=== PATIENT | male | born 1950 | race Caucasian/White ===

== ENCOUNTER 2018-04-15 21:28 | Emergency (ER) | payer MEDICARE, MEDICAID ==
[~2018-04-15] VITALS: Ht 172.7 cm; Wt 78.5 kg
[~2018-04-15 21:28] MED LIST: BUPR300T53 PO; CLOM25CA10 PO; CYCL-1 PO; CYCL-35 PO; DIPH50CA4 PO; FLO0.4C PO; LACT10SO PO; LISI-222 PO; METF500T PO; PERPHENAZINE PO; PIOG15TA8 PO
[2018-04-15 21:51] LABS: BASOPHILS # (AUTO) 0.1 X10'3 (0-0.2); BASOPHILS % (AUTO) 0.9 % (0-1); EOSINOPHILS # (AUTO) 0.3 X10'3 (0-0.9); HEMATOCRIT 42.4 % (42.0-52.0); HEMOGLOBIN 14.5 g/dl (14.0-17.9); LYMPHOCYTES # (AUTO) 3.1 X10'3 (1.1-4.8); LYMPHOCYTES % (AUTO) 28.9 % (21-51); MEAN CORPUSCULAR HGB CONC 34.1 % (33.0-36.5); MEAN CORPUSCULAR VOLUME 88.1 FL (78-98); MEAN PLATELET VOLUME 8.1 FL (7.4-10.4); MONOCYTES # (AUTO) 0.5 X10'3 (0-0.9); MONOCYTES % (AUTO) 4.9 % (2-12); NEUTROPHILS # (AUTO) 6.6 X10'3 (1.8-7.7); NEUTROPHILS % (AUTO) 62.3 % (42-75); PLATELET COUNT 228 X10'3 (140-440); RED BLOOD COUNT 4.81 X10'6 (4.70-6.10); RED CELL DISTRIBUTION WIDTH 13.3 % (11.5-14.5); WHITE BLOOD COUNT 10.7 X10'3 (4.5-11.0)
[2018-04-15 21:59] LABS: PARTIAL THROMBOPLASTIN TIME 25 SECONDS (22-32)
[2018-04-15 22:08] LABS: ALANINE AMINOTRANSFERASE 22 U/L (12-78); ALBUMIN/GLOBULIN RATIO 1.3 (1.1-1.5); ALKALINE PHOSPHATASE 73 IU/L (46-116); ANION GAP 9 (8-16); ASPARTATE AMINO TRANSFERASE 11 U/L (10-37); BILIRUBIN,TOTAL 0.7 MG/DL (0.1-1.0); BLOOD UREA NITROGEN 30 MG/DL (7-18); BUN/CREATININE RATIO 10.1 (5.4-32.0); CALCIUM 9.4 MG/DL (8.5-10.1); CHLORIDE 104 MMOL/L (99-107); CREATININE 2.98 MG/DL (0.60-1.10); GLUCOSE 146 MG/DL (70-104); POTASSIUM 4.5 MMOL/L (3.5-5.1); SODIUM 141 MMOL/L (135-145); TOTAL PROTEIN 7.2 G/DL (6.4-8.2); eGFR 21 ML/MIN
[2018-04-16] MEDS ORDERED: FAMO-128 PO (00:40)
[2018-04-16 00:57] VITALS: BP 153/78
== END 2018-04-16 00:58 | disposition home or self-care (01) ==
LOC: ER 21:28
DX: K21.9 Gastro-esophageal reflux disease without esophagitis (principal); R06.81 Apnea, not elsewhere classified; I10 Essential (primary) hypertension; E11.9 Type 2 diabetes mellitus without complications; Z88.0 Allergy status to penicillin
CPT/HCPCS: 36415; 71045; 80053; 84484; 85025; 85610; 85730; 99285

== ENCOUNTER 2018-04-25 04:44 | Emergency (ER) | payer MEDICARE, MEDICAID ==
[~2018-04-25] VITALS: Ht 172.7 cm; Wt 91.5 kg
[~2018-04-25 04:44] MED LIST changes: +FAMO-128 PO
[2018-04-25 05:07] LABS: BASOPHILS # (AUTO) 0.1 X10'3 (0-0.2); BASOPHILS % (AUTO) 0.8 % (0-1); EOSINOPHILS # (AUTO) 0.3 X10'3 (0-0.9); EOSINOPHILS % (AUTO) 2.8 % (0-6); HEMATOCRIT 42.1 % (42.0-52.0); HEMOGLOBIN 14.4 g/dl (14.0-17.9); LYMPHOCYTES # (AUTO) 2.9 X10'3 (1.1-4.8); LYMPHOCYTES % (AUTO) 29.3 % (21-51); MEAN CORPUSCULAR HEMOGLOBIN 30.2 PG (27.0-31.0); MEAN CORPUSCULAR HGB CONC 34.3 % (33.0-36.5); MEAN CORPUSCULAR VOLUME 88.2 FL (78-98); MEAN PLATELET VOLUME 8.4 FL (7.4-10.4); MONOCYTES # (AUTO) 0.6 X10'3 (0-0.9); MONOCYTES % (AUTO) 6.4 % (2-12); NEUTROPHILS # (AUTO) 5.9 X10'3 (1.8-7.7); NEUTROPHILS % (AUTO) 60.7 % (42-75); PLATELET COUNT 222 X10'3 (140-440); RED BLOOD COUNT 4.77 X10'6 (4.70-6.10); RED CELL DISTRIBUTION WIDTH 13.2 % (11.5-14.5); WHITE BLOOD COUNT 9.7 X10'3 (4.5-11.0)
[2018-04-25 05:21] LABS: INR 0.9 INR; PARTIAL THROMBOPLASTIN TIME 25 SECONDS (22-32); PROTHROMBIN TIME 9.8 SECONDS (9.0-12.0)
[2018-04-25 05:24] LABS: ALANINE AMINOTRANSFERASE 18 U/L (12-78); ALBUMIN 3.9 G/DL (3.4-5.0); ALBUMIN/GLOBULIN RATIO 1.2 (1.1-1.5); ALKALINE PHOSPHATASE 84 IU/L (46-116); ANION GAP 9 (8-16); ASPARTATE AMINO TRANSFERASE 9 U/L (10-37); BILIRUBIN,TOTAL 0.5 MG/DL (0.1-1.0); BLOOD UREA NITROGEN 28 MG/DL (7-18); BUN/CREATININE RATIO 9.5 (5.4-32.0); CALCIUM 8.7 MG/DL (8.5-10.1); CHLORIDE 103 MMOL/L (99-107); CREATININE 2.96 MG/DL (0.60-1.10); GLUCOSE 248 MG/DL (70-104); SODIUM 139 MMOL/L (135-145); TOTAL CARBON DIOXIDE 27.2 MMOL/L (24-32); TOTAL PROTEIN 7.2 G/DL (6.4-8.2); eGFR 21 ML/MIN
[2018-04-25] MEDS ORDERED: LORazepam 1 MG tablet PO ONE (06:00)
[2018-04-25 06:10] VITALS: BP 133/96
== END 2018-04-25 06:12 | disposition home or self-care (01) ==
LOC: ER 04:45
DX: R06.00 Dyspnea, unspecified (principal); K21.9 Gastro-esophageal reflux disease without esophagitis; E11.22 Type 2 diabetes mellitus with diabetic chronic kidney disease; I12.9 Hypertensive chronic kidney disease with stage 1 through stage 4 chronic kidney disease, or unspecified chronic kidney disease; N18.9 Chronic kidney disease, unspecified; Z79.84 Long term (current) use of oral hypoglycemic drugs; Z88.0 Allergy status to penicillin; Z98.890 Other specified postprocedural states
CPT/HCPCS: 36415; 71045; 80053; 83880; 84443; 84484; 85025; 85610; 85730; 93005; 99285

== ENCOUNTER 2018-08-19 14:26 | Inpatient (IN) | payer MEDICARE, MEDICAID ==
[~2018-08-19] VITALS: Ht 172.7 cm; Wt 84.7 kg
[~2018-08-19 14:26] MED LIST changes: +etomidate 2mg/ml inj. ONE; +rocuronium 10mg/ml inj IV ONE
[2018-08-19 15:21] LABS: BASOPHILS # (AUTO) 0.1 X10'3 (0-0.2); BASOPHILS % (AUTO) 1.1 % (0-1); EOSINOPHILS # (AUTO) 0.3 X10'3 (0-0.9); EOSINOPHILS % (AUTO) 3.1 % (0-6); HEMATOCRIT 36.6 % (42.0-52.0); HEMOGLOBIN 12.5 g/dl (14.0-17.9); LYMPHOCYTES % (AUTO) 21.1 % (21-51); MEAN CORPUSCULAR HEMOGLOBIN 29.6 PG (27.0-31.0); MEAN CORPUSCULAR HGB CONC 34.1 % (33.0-36.5); MEAN CORPUSCULAR VOLUME 86.8 FL (78-98); MEAN PLATELET VOLUME 8.5 FL (7.4-10.4); MONOCYTES # (AUTO) 0.5 X10'3 (0-0.9); MONOCYTES % (AUTO) 5.2 % (2-12); NEUTROPHILS # (AUTO) 6.6 X10'3 (1.8-7.7); NEUTROPHILS % (AUTO) 69.5 % (42-75); PLATELET COUNT 243 X10'3 (140-440); RED BLOOD COUNT 4.21 X10'6 (4.70-6.10); RED CELL DISTRIBUTION WIDTH 12.8 % (11.5-14.5); WHITE BLOOD COUNT 9.4 X10'3 (4.5-11.0)
[2018-08-19 15:32] LABS: PARTIAL THROMBOPLASTIN TIME 29 SECONDS (22-32); PROTHROMBIN TIME 10.1 SECONDS (9.0-12.0)
[2018-08-19 15:39] LABS: ALANINE AMINOTRANSFERASE 25 U/L (12-78); ALBUMIN 3.7 G/DL (3.4-5.0); ALKALINE PHOSPHATASE 88 IU/L (46-116); ANION GAP 12 (8-16); BLOOD UREA NITROGEN 43 MG/DL (7-18); BUN/CREATININE RATIO 7.7 (5.4-32.0); CALCIUM 9.2 MG/DL (8.5-10.1); CHLORIDE 108 MMOL/L (99-107); CREATININE 5.59 MG/DL (0.60-1.10); GLUCOSE 114 MG/DL (70-104); SODIUM 144 MMOL/L (135-145); TOTAL CARBON DIOXIDE 24.2 MMOL/L (24-32); TOTAL PROTEIN 7.3 G/DL (6.4-8.2); eGFR 10 ML/MIN
[2018-08-19 15:42] LABS: ETHANOL < 0.010 GM/DL (0.0-0.010); TROPONIN I < 0.04 NG/ML (0.0-0.05)
[2018-08-19 15:45] LABS: ASPARTATE AMINO TRANSFERASE 22 U/L (10-37); POTASSIUM 4.9 MMOL/L (3.5-5.1)
[2018-08-19] MEDS ORDERED: normal saline 1000ml 1,000 ML IV ONE (15:45)
[2018-08-19] MEDS ORDERED: HYDROcodone/acetaminophen 5mg/325mg tablet PO PRN (16:20)
[2018-08-19] MEDS ORDERED: ondansetron/PF 4mg/2ml inj IV PRN (16:20)
[2018-08-19] MEDS ORDERED: acetaminophen 325mg tablet PO PRN ×2 (16:20)
[2018-08-19 18:02] LABS: CLARITY,URINE SLIGHTLY CLOUDY (Clear); COLOR,URINE YELLOW (Yellow); GLUCOSE, URINE NEGATIVE (Neg); KETONES,URINE NEGATIVE (Neg); LEUKOCYTE ESTERASE ,URINE NEGATIVE (Neg); NITRITES, URINE NEGATIVE (Neg); OCCULT BLOOD,URINE TRACE-INTACT (Neg); PROTEIN,URINE TRACE mg/dl (Neg); UROBILINOGEN,URINE 0.2 E.U/dL (0.2-1.0)
[2018-08-19 18:08] LABS: UA COLLECTION TYPE FOLEY CATH
[2018-08-19 18:13] LABS: URINE AMPHETAMINE SCREEN NEGATIVE (Neg); URINE BARBITUATE SCREEN NEGATIVE (Neg); URINE BENZODIAZEPINES SCREEN NEGATIVE (Neg); URINE CANNABINOID SCREEN NEGATIVE (Neg); URINE COCAINE SCREEN NEGATIVE (Neg); URINE METHADONE SCREEN NEGATIVE (Neg); URINE OPIATE SCREEN NEGATIVE (Neg); URINE PHENCYCLIDINE SCREEN NEGATIVE (Neg)
[2018-08-19 18:47] LABS: RENAL CELLS, URINE MANY /HPF
[2018-08-19 18:48] LABS: BACTERIA,URINE FEW /HPF (Neg); MUCUS STRANDS NONE SEEN /LPF (Neg); RBC,URINE NONE SEEN /HPF (0-2); SQUAMOUS EPITHELIAL CELL,UR NONE SEEN /LPF (FEW); WBC,URINE 0-4 /HPF (0-4)
[2018-08-19] MEDS ORDERED: PERP8TAB6 PO (18:49)
[2018-08-19] MEDS ORDERED: ASPI81TA52 PO (18:49)
[2018-08-19] MEDS ORDERED: GLIP10TA11 PO (18:49)
[2018-08-19] MEDS ORDERED: CHOL500049 PO (18:49)
[2018-08-19] MEDS ORDERED: LINA5TAB4 PO (18:49)
[2018-08-19] MEDS ORDERED: HYDR-3965 PO (18:49)
[2018-08-19] MEDS ORDERED: LABE100T5 PO (18:49)
[2018-08-19] MEDS ORDERED: AMIT100T2 PO (18:49)
[2018-08-19 18:59] VITALS: BP 164/99
[2018-08-19] MEDS: normal saline 1000ml 1,000 ML IV SCH (19:05)
[2018-08-19 20:00] VITALS: BP_SYST 118; BP_SYST 131; BP_SYST 172; BP_DIAS 102; BP_DIAS 80; BP_DIAS 89
[2018-08-19] MEDS: heparin, porcine 5000 units/ml vial SQ SCH (20:13)
[2018-08-19 22:00] VITALS: BP 131/89
[2018-08-20] VITALS (9 sets, daily range): BP systolic 86–156; BP diastolic 37–106
[2018-08-20] MEDS: normal saline 1000ml 1,000 ML IV SCH ×3 (02:20→15:59)
[2018-08-20 05:42] LABS: BASOPHILS % (AUTO) 0.3 % (0-1); EOSINOPHILS # (AUTO) 0.4 X10'3 (0-0.9); EOSINOPHILS % (AUTO) 2.9 % (0-6); HEMATOCRIT 35.4 % (42.0-52.0); LYMPHOCYTES # (AUTO) 2.8 X10'3 (1.1-4.8); LYMPHOCYTES % (AUTO) 22.6 % (21-51); MEAN CORPUSCULAR HEMOGLOBIN 29.7 PG (27.0-31.0); MEAN CORPUSCULAR HGB CONC 33.9 % (33.0-36.5); MEAN CORPUSCULAR VOLUME 87.7 FL (78-98); MEAN PLATELET VOLUME 8.3 FL (7.4-10.4); MONOCYTES # (AUTO) 0.7 X10'3 (0-0.9); MONOCYTES % (AUTO) 5.9 % (2-12); NEUTROPHILS # (AUTO) 8.5 X10'3 (1.8-7.7); NEUTROPHILS % (AUTO) 68.3 % (42-75); PLATELET COUNT 229 X10'3 (140-440); RED BLOOD COUNT 4.03 X10'6 (4.70-6.10); RED CELL DISTRIBUTION WIDTH 12.8 % (11.5-14.5); WHITE BLOOD COUNT 12.4 X10'3 (4.5-11.0)
[2018-08-20 06:20] LABS: ALANINE AMINOTRANSFERASE 25 U/L (12-78); ALBUMIN 3.5 G/DL (3.4-5.0); ALBUMIN/GLOBULIN RATIO 1.1 (1.1-1.5); ANION GAP 13 (8-16); ASPARTATE AMINO TRANSFERASE 23 U/L (10-37); BILIRUBIN,TOTAL 0.9 MG/DL (0.1-1.0); BLOOD UREA NITROGEN 41 MG/DL (7-18); BUN/CREATININE RATIO 7.8 (5.4-32.0); CALCIUM 8.6 MG/DL (8.5-10.1); CHLORIDE 110 MMOL/L (99-107); CREATININE 5.23 MG/DL (0.60-1.10); GLUCOSE 74 MG/DL (70-104); MAGNESIUM 1.9 MG/DL (1.5-2.4); PHOSPHORUS 3.4 MG/DL (2.3-4.5); POTASSIUM 4.4 MMOL/L (3.5-5.1); SODIUM 147 MMOL/L (135-145); TOTAL CARBON DIOXIDE 24.1 MMOL/L (24-32); TOTAL PROTEIN 6.7 G/DL (6.4-8.2); eGFR 11 ML/MIN
[2018-08-20 06:21] LABS: ALKALINE PHOSPHATASE 80 IU/L (46-116)
[2018-08-20] MEDS: heparin, porcine 5000 units/ml vial SQ SCH ×2 (07:15→19:49)
[2018-08-20 08:54] LABS: OSMOLALITY 310 MOSM/K (280-300)
[2018-08-20] MEDS: metoprolol tartrate 25mg tablet PO SCH ×2 (11:53→19:49)
[2018-08-20] MEDS: cloNIDine 0.1 mg tablet PO PRN (13:00)
[2018-08-20] MEDS ORDERED: labetalol 20mg/4ml (5mg/ml) syringe IV ONE (15:35)
[2018-08-20] MEDS: buPROPion SR 150mg tablet PO SCH (20:23)
[2018-08-20] MEDS ORDERED: buproprion 150mg XL (24-hour) tablet PO SCH (20:30)
[2018-08-20] MEDS ORDERED: diltiazem 5mg/ml 5ml inj. IV ONE ×2 (21:25→22:00)
[2018-08-21] VITALS (27 sets, daily range): BP systolic 98–216; BP diastolic 60–115
[2018-08-21] MEDS: diltiazem-NS 100mg/100ml 100 ML IV SCH ×2 (00:30→18:42)
[2018-08-21 03:12] LABS: ALANINE AMINOTRANSFERASE 34 U/L (12-78); ALBUMIN 3.6 G/DL (3.4-5.0); ALKALINE PHOSPHATASE 93 IU/L (46-116); ANION GAP 18 (8-16); ASPARTATE AMINO TRANSFERASE 51 U/L (10-37); BASOPHILS # (AUTO) 0.1 X10'3 (0-0.2); BASOPHILS % (AUTO) 0.6 % (0-1); BILIRUBIN,TOTAL 1.3 MG/DL (0.1-1.0); BLOOD UREA NITROGEN 48 MG/DL (7-18); BUN/CREATININE RATIO 9.3 (5.4-32.0); CALCIUM 9.4 MG/DL (8.5-10.1); CHLORIDE 108 MMOL/L (99-107); CREATININE 5.17 MG/DL (0.60-1.10); EOSINOPHILS # (AUTO) 0.3 X10'3 (0-0.9); EOSINOPHILS % (AUTO) 1.7 % (0-6); GLUCOSE 120 MG/DL (70-104); HEMATOCRIT 38.1 % (42.0-52.0); HEMOGLOBIN 12.8 g/dl (14.0-17.9); LYMPHOCYTES % (AUTO) 11.5 % (21-51); MEAN CORPUSCULAR HEMOGLOBIN 29.5 PG (27.0-31.0); MEAN CORPUSCULAR HGB CONC 33.6 % (33.0-36.5); MEAN CORPUSCULAR VOLUME 87.7 FL (78-98); MEAN PLATELET VOLUME 9.2 FL (7.4-10.4); MONOCYTES # (AUTO) 0.4 X10'3 (0-0.9); MONOCYTES % (AUTO) 2.2 % (2-12); NEUTROPHILS # (AUTO) 14.4 X10'3 (1.8-7.7); PLATELET COUNT 266 X10'3 (140-440); POTASSIUM 4.6 MMOL/L (3.5-5.1); RED BLOOD COUNT 4.35 X10'6 (4.70-6.10); RED CELL DISTRIBUTION WIDTH 12.8 % (11.5-14.5); SODIUM 145 MMOL/L (135-145); TOTAL CARBON DIOXIDE 19.5 MMOL/L (24-32); TOTAL PROTEIN 7.1 G/DL (6.4-8.2); WHITE BLOOD COUNT 17.1 X10'3 (4.5-11.0); eGFR 11 ML/MIN
[2018-08-21 03:15] LABS: MAGNESIUM 1.9 MG/DL (1.5-2.4); PHOSPHORUS 4.4 MG/DL (2.3-4.5); TROPONIN I < 0.04 NG/ML (0.0-0.05)
[2018-08-21] MEDS ORDERED: LORazepam 2 mg/ml vial IV ONE ×2 (04:05→10:50)
[2018-08-21] MEDS ORDERED: normal saline 1000ml 1,000 ML IVB ONE (05:10)
[2018-08-21] MEDS: piperacillin/tazo 3.375gm/50ml 50 ML IV SCH ×4 (05:50→20:47)
[2018-08-21] MEDS ORDERED: vancomycin inj 1,250 MG in normal saline 250ml IV soln 250 ML IV PRN (06:00)
[2018-08-21 06:58] LABS: TROPONIN I 0.05 NG/ML (0.0-0.05)
[2018-08-21 07:17] LABS: CLARITY,URINE CLEAR (Clear); COLOR,URINE YELLOW (Yellow); GLUCOSE, URINE 100 mg/dl (Neg); KETONES,URINE 15 mg/dl (Neg); LEUKOCYTE ESTERASE ,URINE NEGATIVE (Neg); NITRITES, URINE NEGATIVE (Neg); OCCULT BLOOD,URINE LARGE (Neg); PH,URINE 5.5 (4.8-8.0); PROTEIN,URINE TRACE mg/dl (Neg); UROBILINOGEN,URINE 0.2 E.U/dL (0.2-1.0)
[2018-08-21] MEDS: heparin, porcine 5000 units/ml vial SQ SCH (07:19)
[2018-08-21] MEDS: metoprolol tartrate 25mg tablet PO SCH ×2 (07:19→20:47)
[2018-08-21] MEDS: buPROPion SR 150mg tablet PO SCH (07:19)
[2018-08-21 07:21] LABS: UA COLLECTION TYPE FOLEY CATH
[2018-08-21 07:24] LABS: BACTERIA,URINE FEW /HPF (Neg); RBC,URINE TNTC /HPF (0-2); SQUAMOUS EPITHELIAL CELL,UR MODERATE /LPF (FEW); WBC,URINE 0-4 /HPF (0-4)
[2018-08-21] MEDS ORDERED: CHOLECALCIFEROL PO SCH (10:30)
[2018-08-21] MEDS ORDERED: HYDROcodone/acetaminophen 5mg/325mg tablet PO PRN (10:30)
[2018-08-21] MEDS: tamsulosin 0.4mg capsule PO SCH (10:30)
[2018-08-21] MEDS: diltiazem CD 180mg cap (once-daily) PO SCH (10:35)
[2018-08-21 11:21] LABS: ABG BASE EXCESS -13.8 mmol/L (-2.0-3.0); ABG HCO3 12.7 mmol/L (22.0-26.0); ABG OXYGEN SATURATION 96.1 % (95-98); ABG PCO2 (T) 32.1 mmHg (35.0-48.0); ABG PH (T) 7.216 (7.350-7.450); ABG PO2 (T) 98.4 mmHg (83-108); FCOHb 0.3 % (0.5-1.5); FLOW 6 L/min; FMetHb 0.1 % (0.3-1.12); FO2Hb 95.7 % (94-100); TOTAL HEMOGLOBIN 12.4 G/dl (14.0-18.0)
[2018-08-21] MEDS ORDERED: dantrolene 20mg inj IV ONE ×2 (11:30→12:50)
[2018-08-21] MEDS ORDERED: sodium bicarbonate (8.4%) inj. 150 MEQ in sodium chloride 0.45% 1,000 ML IV SCH (12:15)
[2018-08-21 13:09] LABS: PROTHROMBIN TIME 10.7 SECONDS (9.0-12.0)
[2018-08-21] MEDS ORDERED: MIDAZolam 5mg/ml 2ml vial ONE (13:36)
[2018-08-21] MEDS ORDERED: ipratropium/albuterol 3ml nebule NEB PRN (14:20)
[2018-08-21] MEDS ORDERED: midazolam 2 mg/2 ml injection IV PRN (14:20)
[2018-08-21] MEDS ORDERED: MESSAGE TO PHARMACY PO ONE (14:40)
[2018-08-21] MEDS ORDERED: dextrose 50%-water 50ml dispensing syringe IV PRN ×2 (14:40)
[2018-08-21] MEDS ORDERED: dextrose ORAL solution 15 GM/59 ML bottle PO PRN ×2 (14:40)
[2018-08-21] MEDS ORDERED: glucagon, human recombinant 1mg kit SUBCUT PRN (14:40)
[2018-08-21] MEDS: FENTANYL-0.9 % NACL/PF 100 ML IV PRN (14:52)
[2018-08-21] MEDS: sodium bicarbonate (8.4%) inj. 150 MEQ in dextrose 5%-water 1,000 ML IV SCH (14:56)
[2018-08-21] MEDS: midazolam 100mg in NS 100ml 100 ML IV PRN (15:09)
[2018-08-21] MEDS ORDERED: rocuronium 10mg/ml inj IV ONE (15:15)
[2018-08-21] MEDS ORDERED: etomidate 2mg/ml inj. IV ONE (15:15)
[2018-08-21] MEDS: vitamin D (cholecalciferol) 1,000 unit tablet PO SCH (15:35)
[2018-08-21] MEDS: carbidopa/levodopa 10/100mg tab PO SCH (16:11)
[2018-08-21 17:30] LABS: ABG BASE EXCESS -13.1 mmol/L (-2.0-3.0); ABG HCO3 12.9 mmol/L (22.0-26.0); ABG OXYGEN SATURATION 96.3 % (95-98); ABG PCO2 (T) 30.2 mmHg (35.0-48.0); ABG PH (T) 7.247 (7.350-7.450); ABG PO2 (T) 97.9 mmHg (83-108); ALLEN'S TEST Positive; FCOHb 0.3 % (0.5-1.5); FMetHb 0.2 % (0.3-1.12); FO2Hb 95.8 % (94-100); RESPIRATORY RATE 14 b/min; RESPIRATORY RATE (OBSERVED) 16 b/min; TIDAL VOLUME 400 mL; TOTAL HEMOGLOBIN 11.1 G/dl (14.0-18.0)
[2018-08-21] MEDS: labetalol 100mg tablet PO SCH (20:00)
[2018-08-21] MEDS ORDERED: glipizide 5mg tablet PO SCH (20:00)
[2018-08-21] MEDS: lactobacillus rhamnosus 10,000 MMU CELLS/CAPSULE PO SCH (20:47)
[2018-08-21] MEDS: amitryptiline 50mg tablet PO SCH (20:48)
[2018-08-21] MEDS ORDERED: warfarin 5mg tablet PO ONE (21:00)
[2018-08-21] MEDS ORDERED: amitryptiline 50mg tablet PO SCH (21:00)
[2018-08-21] MEDS: insulin glargine (Lantus) pen - multi-dose SQ SCH (21:06)
[2018-08-21] MEDS: insulin regular, human vial - multi-dose SQ SCH (21:07)
[2018-08-22] VITALS (23 sets, daily range): BP systolic 105–136; BP diastolic 62–84
[2018-08-22] MEDS: carbidopa/levodopa 10/100mg tab PO SCH ×3 (00:28→15:33)
[2018-08-22] MEDS: piperacillin/tazo 3.375gm/50ml 50 ML IV SCH ×3 (02:07→14:11)
[2018-08-22] MEDS: sodium bicarbonate (8.4%) inj. 150 MEQ in dextrose 5%-water 1,000 ML IV SCH ×2 (02:07→14:58)
[2018-08-22] MEDS: insulin regular, human vial - multi-dose SQ SCH ×3 (02:43→14:40)
[2018-08-22 02:56] LABS: ABG BASE EXCESS -3.5 mmol/L (-2.0-3.0); ABG HCO3 20.8 mmol/L (22.0-26.0); ABG OXYGEN SATURATION 94.4 % (95-98); ABG PCO2 (T) 35.6 mmHg (35.0-48.0); ABG PH (T) 7.388 (7.350-7.450); ABG PO2 (T) 73.1 mmHg (83-108); ALLEN'S TEST Positive; FCOHb 0.3 % (0.5-1.5); FO2Hb 94.1 % (94-100); MINUTE VOLUME 7 L/min; PATIENT TEMPERATURE 37.5; PEEP 5 cm H2O; RESPIRATORY RATE 12 b/min; RESPIRATORY RATE (OBSERVED) 12 b/min; TIDAL VOLUME 450 mL; TOTAL HEMOGLOBIN 10.6 G/dl (14.0-18.0)
[2018-08-22] MEDS: midazolam 100mg in NS 100ml 100 ML IV PRN ×2 (03:01→21:52)
[2018-08-22 03:04] LABS: BASOPHILS % (AUTO) 0.1 % (0-1); EOSINOPHILS # (AUTO) 0.2 X10'3 (0-0.9); EOSINOPHILS % (AUTO) 1.2 % (0-6); HEMATOCRIT 29.2 % (42.0-52.0); HEMOGLOBIN 9.7 g/dl (14.0-17.9); LYMPHOCYTES # (AUTO) 1.4 X10'3 (1.1-4.8); LYMPHOCYTES % (AUTO) 9.5 % (21-51); MEAN CORPUSCULAR HEMOGLOBIN 29.3 PG (27.0-31.0); MEAN CORPUSCULAR HGB CONC 33.3 % (33.0-36.5); MEAN CORPUSCULAR VOLUME 87.9 FL (78-98); MEAN PLATELET VOLUME 9.1 FL (7.4-10.4); MONOCYTES # (AUTO) 0.9 X10'3 (0-0.9); MONOCYTES % (AUTO) 6.4 % (2-12); NEUTROPHILS # (AUTO) 12.2 X10'3 (1.8-7.7); NEUTROPHILS % (AUTO) 82.8 % (42-75); PLATELET COUNT 203 X10'3 (140-440); RED BLOOD COUNT 3.33 X10'6 (4.70-6.10); RED CELL DISTRIBUTION WIDTH 12.7 % (11.5-14.5); WHITE BLOOD COUNT 14.7 X10'3 (4.5-11.0)
[2018-08-22 03:11] LABS: PROTHROMBIN TIME 10.6 SECONDS (9.0-12.0)
[2018-08-22 03:21] LABS: ALANINE AMINOTRANSFERASE 26 U/L (12-78); ALBUMIN/GLOBULIN RATIO 1.1 (1.1-1.5); ALKALINE PHOSPHATASE 66 IU/L (46-116); ANION GAP 15 (8-16); ASPARTATE AMINO TRANSFERASE 47 U/L (10-37); BILIRUBIN,TOTAL 1.5 MG/DL (0.1-1.0); BLOOD UREA NITROGEN 75 MG/DL (7-18); BUN/CREATININE RATIO 13.7 (5.4-32.0); CALCIUM 8.5 MG/DL (8.5-10.1); CHLORIDE 105 MMOL/L (99-107); CREATININE 5.49 MG/DL (0.60-1.10); GLUCOSE 173 MG/DL (70-104); MAGNESIUM 2.3 MG/DL (1.5-2.4); PHOSPHORUS 5.7 MG/DL (2.3-4.5); SODIUM 144 MMOL/L (135-145); TOTAL CARBON DIOXIDE 24.4 MMOL/L (24-32); TOTAL PROTEIN 5.8 G/DL (6.4-8.2); VANCOMYCIN,RANDOM 12.9 UG/ML; eGFR 10 ML/MIN
[2018-08-22] MEDS: FENTANYL-0.9 % NACL/PF 100 ML IV PRN ×2 (04:34→21:52)
[2018-08-22] MEDS: metoprolol tartrate 25mg tablet PO SCH ×2 (07:31→21:27)
[2018-08-22] MEDS: tamsulosin 0.4mg capsule PO SCH (07:31)
[2018-08-22] MEDS: lactobacillus rhamnosus 10,000 MMU CELLS/CAPSULE PO SCH ×2 (07:31→21:27)
[2018-08-22] MEDS: diltiazem CD 180mg cap (once-daily) PO SCH (07:31)
[2018-08-22] MEDS: aspirin 81mg tablet.DR PO SCH (07:31)
[2018-08-22] MEDS: vitamin D (cholecalciferol) 1,000 unit tablet PO SCH (07:31)
[2018-08-22] MEDS: linagliptin 5mg tablet PO SCH (07:35)
[2018-08-22] MEDS: labetalol 100mg tablet PO SCH (08:00)
[2018-08-22] MEDS ORDERED: BUPROPION HCL 300 MG PO SCH (08:00)
[2018-08-22] MEDS ORDERED: vancomycin inj 1,250 MG in normal saline 250ml IV soln 250 ML IV PRN (08:00)
[2018-08-22] MEDS ORDERED: vancomycin inj 1,250 MG in normal saline 250ml IV soln 250 ML IV ONE (08:00)
[2018-08-22] MEDS: thiamine inj. 100 MG, magnesium sulf injection 2 GM, MVI, adult No.4 with vit. K 10 ML ... IV SCH ×4 (08:32)
[2018-08-22] MEDS ORDERED: MIDAZolam 5mg/ml 2ml vial ONE (11:13)
[2018-08-22] MEDS: amitryptiline 50mg tablet PO SCH (21:26)
[2018-08-22] MEDS: mineral oil/petrolatum ophthal oint EACHEYE SCH (21:27)
[2018-08-22] MEDS: heparin, porcine 5000 units/ml vial SQ SCH (21:27)
[2018-08-22] MEDS: insulin glargine (Lantus) pen - multi-dose SQ SCH (21:47)
[2018-08-22] MEDS: piperacillin-tazo 2.25gm/50ml 50 ML IV SCH (21:51)
[2018-08-23] VITALS (23 sets, daily range): BP systolic 104–153; BP diastolic 69–93
[2018-08-23 02:44] LABS: BASOPHILS % (AUTO) 0.3 % (0-1); EOSINOPHILS # (AUTO) 0.3 X10'3 (0-0.9); EOSINOPHILS % (AUTO) 3.3 % (0-6); HEMATOCRIT 28.2 % (42.0-52.0); HEMOGLOBIN 9.4 g/dl (14.0-17.9); LYMPHOCYTES # (AUTO) 2.1 X10'3 (1.1-4.8); MEAN CORPUSCULAR HEMOGLOBIN 29.3 PG (27.0-31.0); MEAN CORPUSCULAR HGB CONC 33.3 % (33.0-36.5); MEAN CORPUSCULAR VOLUME 88.1 FL (78-98); MEAN PLATELET VOLUME 8.8 FL (7.4-10.4); MONOCYTES # (AUTO) 0.6 X10'3 (0-0.9); MONOCYTES % (AUTO) 5.9 % (2-12); NEUTROPHILS # (AUTO) 6.8 X10'3 (1.8-7.7); NEUTROPHILS % (AUTO) 69.5 % (42-75); PLATELET COUNT 159 X10'3 (140-440); RED CELL DISTRIBUTION WIDTH 12.8 % (11.5-14.5); WHITE BLOOD COUNT 9.8 X10'3 (4.5-11.0)
[2018-08-23 02:47] LABS: PROTHROMBIN TIME 10.5 SECONDS (9.0-12.0)
[2018-08-23 02:57] LABS: ALANINE AMINOTRANSFERASE 13 U/L (12-78); ALBUMIN 2.5 G/DL (3.4-5.0); ALBUMIN/GLOBULIN RATIO 0.9 (1.1-1.5); ALKALINE PHOSPHATASE 54 IU/L (46-116); ANION GAP 12 (8-16); ASPARTATE AMINO TRANSFERASE 33 U/L (10-37); BLOOD UREA NITROGEN 63 MG/DL (7-18); BUN/CREATININE RATIO 12.8 (5.4-32.0); CALCIUM 8.3 MG/DL (8.5-10.1); CHLORIDE 104 MMOL/L (99-107); CREATININE 4.92 MG/DL (0.60-1.10); GLUCOSE 118 MG/DL (70-104); MAGNESIUM 1.9 MG/DL (1.5-2.4); PHOSPHORUS 3.3 MG/DL (2.3-4.5); SODIUM 145 MMOL/L (135-145); TOTAL CARBON DIOXIDE 29.1 MMOL/L (24-32); TOTAL PROTEIN 5.3 G/DL (6.4-8.2); VANCOMYCIN,RANDOM 22.7 UG/ML; eGFR 12 ML/MIN
[2018-08-23] MEDS: mineral oil/petrolatum ophthal oint EACHEYE SCH ×4 (02:58→20:38)
[2018-08-23] MEDS: piperacillin-tazo 2.25gm/50ml 50 ML IV SCH ×4 (02:58→20:37)
[2018-08-23] MEDS ORDERED: VANCOMYCIN LEVEL IV SCH (03:00)
[2018-08-23 03:03] LABS: POTASSIUM 2.7 MMOL/L (3.5-5.1)
[2018-08-23] MEDS ORDERED: potassium Cl 40MEQ/250ML bag 250 ML IV ONE ×2 (03:20→09:20)
[2018-08-23 03:50] LABS: ABG BASE EXCESS 2.6 mmol/L (-2.0-3.0); ABG HCO3 24.5 mmol/L (22.0-26.0); ABG OXYGEN SATURATION 94.5 % (95-98); ABG PCO2 (T) 29.5 mmHg (35.0-48.0); ABG PH (T) 7.541 (7.350-7.450); ABG PO2 (T) 70.6 mmHg (83-108); ALLEN'S TEST Positive; FCOHb 0.3 % (0.5-1.5); FMetHb 0.3 % (0.3-1.12); FO2Hb 93.9 % (94-100); MINUTE VOLUME 9 L/min; PATIENT TEMPERATURE 37.6; PEEP 5 cm H2O; RESPIRATORY RATE 16 b/min; RESPIRATORY RATE (OBSERVED) 19 b/min; TIDAL VOLUME 468 mL; TOTAL HEMOGLOBIN 10.2 G/dl (14.0-18.0)
[2018-08-23] MEDS: sodium bicarbonate (8.4%) inj. 150 MEQ in dextrose 5%-water 1,000 ML IV SCH (06:24)
[2018-08-23] MEDS: heparin, porcine 5000 units/ml vial SQ SCH ×2 (07:53→20:38)
[2018-08-23] MEDS: tamsulosin 0.4mg capsule PO SCH (07:53)
[2018-08-23] MEDS: aspirin 81mg tablet.DR PO SCH (07:53)
[2018-08-23] MEDS: thiamine inj. 100 MG, magnesium sulf injection 2 GM, MVI, adult No.4 with vit. K 10 ML ... IV SCH ×4 (07:53)
[2018-08-23] MEDS: linagliptin 5mg tablet PO SCH (07:53)
[2018-08-23] MEDS: diltiazem CD 180mg cap (once-daily) PO SCH (07:54)
[2018-08-23] MEDS: vitamin D (cholecalciferol) 1,000 unit tablet PO SCH (07:54)
[2018-08-23] MEDS: metoprolol tartrate 25mg tablet PO SCH ×2 (07:54→20:37)
[2018-08-23] MEDS: lactobacillus rhamnosus 10,000 MMU CELLS/CAPSULE PO SCH ×2 (07:54→20:37)
[2018-08-23] MEDS: famotidine/PF 10 mg/ml inj IV SCH ×2 (11:59→20:37)
[2018-08-23] MEDS: amitryptiline 50mg tablet PO SCH (20:37)
[2018-08-23] MEDS: insulin glargine (Lantus) pen - multi-dose SQ SCH (21:00)
[2018-08-23] MEDS: FENTANYL-0.9 % NACL/PF 100 ML IV PRN (22:46)
[2018-08-24] VITALS (24 sets, daily range): BP systolic 95–161; BP diastolic 60–99
[2018-08-24] MEDS: mineral oil/petrolatum ophthal oint EACHEYE SCH ×4 (02:09→19:12)
[2018-08-24] MEDS: piperacillin-tazo 2.25gm/50ml 50 ML IV SCH ×4 (02:09→19:50)
[2018-08-24 02:58] LABS: BASOPHILS % (AUTO) 0.2 % (0-1); EOSINOPHILS # (AUTO) 0.4 X10'3 (0-0.9); EOSINOPHILS % (AUTO) 4.4 % (0-6); HEMATOCRIT 29.1 % (42.0-52.0); HEMOGLOBIN 9.6 g/dl (14.0-17.9); LYMPHOCYTES # (AUTO) 1.5 X10'3 (1.1-4.8); LYMPHOCYTES % (AUTO) 17.6 % (21-51); MEAN CORPUSCULAR HGB CONC 32.9 % (33.0-36.5); MONOCYTES # (AUTO) 0.5 X10'3 (0-0.9); MONOCYTES % (AUTO) 6.1 % (2-12); NEUTROPHILS % (AUTO) 71.7 % (42-75); PLATELET COUNT 154 X10'3 (140-440); RED BLOOD COUNT 3.31 X10'6 (4.70-6.10); RED CELL DISTRIBUTION WIDTH 13.3 % (11.5-14.5); WHITE BLOOD COUNT 8.4 X10'3 (4.5-11.0)
[2018-08-24] MEDS: VANCOMYCIN LEVEL IV SCH (03:00)
[2018-08-24 03:02] LABS: ALANINE AMINOTRANSFERASE 37 U/L (12-78); ALBUMIN 2.5 G/DL (3.4-5.0); ALBUMIN/GLOBULIN RATIO 0.8 (1.1-1.5); ALKALINE PHOSPHATASE 57 IU/L (46-116); ANION GAP 9 (8-16); ASPARTATE AMINO TRANSFERASE 37 U/L (10-37); BILIRUBIN,TOTAL 1.2 MG/DL (0.1-1.0); BLOOD UREA NITROGEN 49 MG/DL (7-18); BUN/CREATININE RATIO 11.3 (5.4-32.0); CALCIUM 8.2 MG/DL (8.5-10.1); CHLORIDE 107 MMOL/L (99-107); CREATININE 4.33 MG/DL (0.60-1.10); GLUCOSE 70 MG/DL (70-104); MAGNESIUM 2.2 MG/DL (1.5-2.4); PHOSPHORUS 2.7 MG/DL (2.3-4.5); POTASSIUM 3.6 MMOL/L (3.5-5.1); SODIUM 144 MMOL/L (135-145); TOTAL CARBON DIOXIDE 27.7 MMOL/L (24-32); TOTAL PROTEIN 5.5 G/DL (6.4-8.2); VANCOMYCIN,RANDOM 15.3 UG/ML; eGFR 14 ML/MIN
[2018-08-24 03:05] LABS: ABG HCO3 21.2 mmol/L (22.0-26.0); ABG PCO2 (T) 31.9 mmHg (35.0-48.0); ABG PH (T) 7.443 (7.350-7.450); ABG PO2 (T) 74.9 mmHg (83-108); ALLEN'S TEST Positive; FCOHb 0.3 % (0.5-1.5); FMetHb 0.3 % (0.3-1.12); FO2Hb 93.4 % (94-100); MINUTE VOLUME 7 L/min; PATIENT TEMPERATURE 37.7; PEEP 5 cm H2O; RESPIRATORY RATE (OBSERVED) 21 b/min; TIDAL VOLUME 352 mL; TOTAL HEMOGLOBIN 10.5 G/dl (14.0-18.0)
[2018-08-24] MEDS: Dextrose 10%-water IV solution 1,000 ML IV SCH (03:41)
[2018-08-24 04:16] LABS: PROTHROMBIN TIME 10.2 SECONDS (9.0-12.0)
[2018-08-24] MEDS: linagliptin 5mg tablet PO SCH (08:00)
[2018-08-24] MEDS: famotidine/PF 10 mg/ml inj IV SCH ×2 (08:18→19:49)
[2018-08-24] MEDS: heparin, porcine 5000 units/ml vial SQ SCH ×2 (08:19→19:50)
[2018-08-24] MEDS: vitamin D (cholecalciferol) 1,000 unit tablet PO SCH (08:19)
[2018-08-24] MEDS: tamsulosin 0.4mg capsule PO SCH (08:19)
[2018-08-24] MEDS: metoprolol tartrate 25mg tablet PO SCH ×2 (08:19→19:12)
[2018-08-24] MEDS: diltiazem CD 180mg cap (once-daily) PO SCH (08:19)
[2018-08-24] MEDS: aspirin 81mg tablet.DR PO SCH (08:19)
[2018-08-24] MEDS: lactobacillus rhamnosus 10,000 MMU CELLS/CAPSULE PO SCH ×2 (08:19→19:12)
[2018-08-24] MEDS ORDERED: racepinephrine 11.25mg/0.5ml nebule NEB PRN (09:20)
[2018-08-24] MEDS ORDERED: ipratropium/albuterol 3ml nebule NEB PRN ×2 (09:20→21:30)
[2018-08-24] MEDS: ipratropium/albuterol 3ml nebule NEB SCH ×2 (14:42→20:27)
[2018-08-24] MEDS: LORazepam 2 mg/ml vial IV PRN ×2 (18:34→23:22)
[2018-08-24] MEDS: insulin glargine (Lantus) pen - multi-dose SQ SCH (21:00)
[2018-08-24] MEDS: amitryptiline 50mg tablet PO SCH (21:00)
[2018-08-25] VITALS (24 sets, daily range): BP systolic 145–193; BP diastolic 83–109
[2018-08-25] MEDS: piperacillin-tazo 2.25gm/50ml 50 ML IV SCH ×4 (01:49→19:24)
[2018-08-25] MEDS: morphine 4 MG/ML inj SYRINge IV PRN ×4 (01:49→22:03)
[2018-08-25] MEDS: mineral oil/petrolatum ophthal oint EACHEYE SCH (01:49)
[2018-08-25 02:50] LABS: BASOPHILS % (AUTO) 0.3 % (0-1); EOSINOPHILS # (AUTO) 0.3 X10'3 (0-0.9); EOSINOPHILS % (AUTO) 3.7 % (0-6); HEMATOCRIT 30.8 % (42.0-52.0); HEMOGLOBIN 10.2 g/dl (14.0-17.9); LYMPHOCYTES # (AUTO) 0.8 X10'3 (1.1-4.8); MEAN CORPUSCULAR HEMOGLOBIN 28.9 PG (27.0-31.0); MEAN CORPUSCULAR HGB CONC 32.9 % (33.0-36.5); MEAN CORPUSCULAR VOLUME 87.8 FL (78-98); MEAN PLATELET VOLUME 8.7 FL (7.4-10.4); MONOCYTES # (AUTO) 0.4 X10'3 (0-0.9); PLATELET COUNT 162 X10'3 (140-440); RED BLOOD COUNT 3.51 X10'6 (4.70-6.10); RED CELL DISTRIBUTION WIDTH 12.8 % (11.5-14.5); WHITE BLOOD COUNT 7.5 X10'3 (4.5-11.0)
[2018-08-25] MEDS: VANCOMYCIN LEVEL IV SCH (02:50)
[2018-08-25 03:00] LABS: PROTHROMBIN TIME 10.4 SECONDS (9.0-12.0)
[2018-08-25 03:08] LABS: ALANINE AMINOTRANSFERASE 42 U/L (12-78); ALBUMIN 2.8 G/DL (3.4-5.0); ALBUMIN/GLOBULIN RATIO 0.8 (1.1-1.5); ALKALINE PHOSPHATASE 66 IU/L (46-116); ANION GAP 12 (8-16); ASPARTATE AMINO TRANSFERASE 34 U/L (10-37); BILIRUBIN,TOTAL 1.7 MG/DL (0.1-1.0); BLOOD UREA NITROGEN 42 MG/DL (7-18); BUN/CREATININE RATIO 9.7 (5.4-32.0); CALCIUM 8.6 MG/DL (8.5-10.1); CHLORIDE 106 MMOL/L (99-107); CREATININE 4.32 MG/DL (0.60-1.10); GLUCOSE 115 MG/DL (70-104); MAGNESIUM 1.8 MG/DL (1.5-2.4); PHOSPHORUS 2.8 MG/DL (2.3-4.5); POTASSIUM 3.7 MMOL/L (3.5-5.1); SODIUM 143 MMOL/L (135-145); TOTAL CARBON DIOXIDE 25.1 MMOL/L (24-32); TOTAL PROTEIN 6.2 G/DL (6.4-8.2); VANCOMYCIN,RANDOM 10.9 UG/ML; eGFR 14 ML/MIN
[2018-08-25] MEDS: LORazepam 2 mg/ml vial IV PRN ×4 (03:38→19:42)
[2018-08-25] MEDS: Dextrose 10%-water IV solution 1,000 ML IV SCH (03:40)
[2018-08-25] MEDS ORDERED: vancomycin inj 1,250 MG in normal saline 250ml IV soln 250 ML IV ONE (06:35)
[2018-08-25] MEDS: famotidine/PF 10 mg/ml inj IV SCH ×2 (07:44→19:24)
[2018-08-25] MEDS: heparin, porcine 5000 units/ml vial SQ SCH ×2 (07:44→19:25)
[2018-08-25] MEDS: vitamin D (cholecalciferol) 1,000 unit tablet PO SCH (08:00)
[2018-08-25] MEDS: tamsulosin 0.4mg capsule PO SCH (08:00)
[2018-08-25] MEDS: metoprolol tartrate 25mg tablet PO SCH ×2 (08:00→17:32)
[2018-08-25] MEDS: lactobacillus rhamnosus 10,000 MMU CELLS/CAPSULE PO SCH ×2 (08:00→19:24)
[2018-08-25] MEDS: aspirin 81mg tablet.DR PO SCH (08:00)
[2018-08-25] MEDS: linagliptin 5mg tablet PO SCH (08:00)
[2018-08-25] MEDS: morphine 2 MG/ML inj. syringe IV PRN ×2 (11:24→13:34)
[2018-08-25] MEDS ORDERED: metoprolol tartrate 1mg/ml inj IV ONE (11:35)
[2018-08-25] MEDS: diltiazem CD 180mg cap (once-daily) PO SCH (17:32)
[2018-08-25] MEDS: cloNIDine 0.1 mg tablet PO PRN (18:16)
[2018-08-25] MEDS: amitryptiline 50mg tablet PO SCH (19:25)
[2018-08-25] MEDS: insulin glargine (Lantus) pen - multi-dose SQ SCH (19:35)
[2018-08-26] VITALS (23 sets, daily range): BP systolic 125–169; BP diastolic 68–104
[2018-08-26] MEDS: LORazepam 2 mg/ml vial IV PRN ×5 (01:42→20:12)
[2018-08-26] MEDS: piperacillin-tazo 2.25gm/50ml 50 ML IV SCH ×4 (01:57→19:32)
[2018-08-26] MEDS: VANCOMYCIN LEVEL IV SCH (02:36)
[2018-08-26 03:08] LABS: PROTHROMBIN TIME 10.6 SECONDS (9.0-12.0)
[2018-08-26 03:16] LABS: EOSINOPHILS % (AUTO) 3.9 % (0-6); MEAN CORPUSCULAR HEMOGLOBIN 30.5 PG (27.0-31.0); MEAN CORPUSCULAR VOLUME 87.6 FL (78-98); MONOCYTES % (AUTO) 7.9 % (2-12)
[2018-08-26 03:17] LABS: BASOPHILS % (AUTO) 0.2 % (0-1); HEMATOCRIT 32.5 % (42.0-52.0); HEMOGLOBIN 11.3 g/dl (14.0-17.9); LYMPHOCYTES # (AUTO) 1.1 X10'3 (1.1-4.8); MEAN CORPUSCULAR HGB CONC 34.8 % (33.0-36.5); MEAN PLATELET VOLUME 8.9 FL (7.4-10.4); NEUTROPHILS # (AUTO) 5.7 X10'3 (1.8-7.7); PLATELET COUNT 183 X10'3 (140-440); RED BLOOD COUNT 3.71 X10'6 (4.70-6.10); RED CELL DISTRIBUTION WIDTH 11.9 % (11.5-14.5); WHITE BLOOD COUNT 7.7 X10'3 (4.5-11.0)
[2018-08-26 03:18] LABS: EOSINOPHILS # (AUTO) 0.3 X10'3 (0-0.9); MONOCYTES # (AUTO) 0.6 X10'3 (0-0.9)
[2018-08-26 03:20] LABS: ALANINE AMINOTRANSFERASE 49 U/L (12-78); ALBUMIN/GLOBULIN RATIO 0.8 (1.1-1.5); ALKALINE PHOSPHATASE 80 IU/L (46-116); ANION GAP 14 (8-16); ASPARTATE AMINO TRANSFERASE 39 U/L (10-37); BLOOD UREA NITROGEN 41 MG/DL (7-18); BUN/CREATININE RATIO 10.3 (5.4-32.0); CALCIUM 9.1 MG/DL (8.5-10.1); CHLORIDE 107 MMOL/L (99-107); GLUCOSE 110 MG/DL (70-104); MAGNESIUM 1.9 MG/DL (1.5-2.4); PHOSPHORUS 2.9 MG/DL (2.3-4.5); POTASSIUM 3.8 MMOL/L (3.5-5.1); SODIUM 145 MMOL/L (135-145); TOTAL CARBON DIOXIDE 24.4 MMOL/L (24-32); VANCOMYCIN,RANDOM 21.7 UG/ML; eGFR 15 ML/MIN
[2018-08-26] MEDS: Dextrose 10%-water IV solution 1,000 ML IV SCH (05:10)
[2018-08-26] MEDS: metoprolol tartrate 25mg tablet PO SCH ×2 (07:56→19:33)
[2018-08-26] MEDS: diltiazem CD 180mg cap (once-daily) PO SCH (07:56)
[2018-08-26] MEDS: lactobacillus rhamnosus 10,000 MMU CELLS/CAPSULE PO SCH ×2 (07:56→20:00)
[2018-08-26] MEDS: famotidine/PF 10 mg/ml inj IV SCH ×2 (07:56→19:33)
[2018-08-26] MEDS: vitamin D (cholecalciferol) 1,000 unit tablet PO SCH (07:56)
[2018-08-26] MEDS: heparin, porcine 5000 units/ml vial SQ SCH ×2 (07:57→19:33)
[2018-08-26] MEDS: aspirin 81mg tablet.DR PO SCH (07:58)
[2018-08-26] MEDS: linagliptin 5mg tablet PO SCH (08:00)
[2018-08-26] MEDS: tamsulosin 0.4mg capsule PO SCH (08:04)
[2018-08-26] MEDS: morphine 2 MG/ML inj. syringe IV PRN ×2 (08:54→12:06)
[2018-08-26] MEDS: amitryptiline 50mg tablet PO SCH (19:33)
[2018-08-26] MEDS: insulin glargine (Lantus) pen - multi-dose SQ SCH (19:34)
[2018-08-26] MEDS: morphine 4 MG/ML inj SYRINge IV PRN (20:12)
[2018-08-27] VITALS (19 sets, daily range): BP systolic 108–191; BP diastolic 68–113
[2018-08-27] MEDS: morphine 4 MG/ML inj SYRINge IV PRN ×2 (00:20→04:06)
[2018-08-27] MEDS: LORazepam 2 mg/ml vial IV PRN ×5 (00:20→22:05)
[2018-08-27] MEDS: VANCOMYCIN LEVEL IV SCH (02:10)
[2018-08-27] MEDS: piperacillin-tazo 2.25gm/50ml 50 ML IV SCH ×2 (02:18→08:43)
[2018-08-27 02:42] LABS: BASOPHILS # (AUTO) 0.1 X10'3 (0-0.2); BASOPHILS % (AUTO) 0.6 % (0-1); EOSINOPHILS # (AUTO) 0.3 X10'3 (0-0.9); EOSINOPHILS % (AUTO) 3.3 % (0-6); HEMATOCRIT 31.3 % (42.0-52.0); HEMOGLOBIN 10.8 g/dl (14.0-17.9); LYMPHOCYTES # (AUTO) 1.4 X10'3 (1.1-4.8); LYMPHOCYTES % (AUTO) 15.7 % (21-51); MEAN CORPUSCULAR HEMOGLOBIN 30.1 PG (27.0-31.0); MEAN CORPUSCULAR HGB CONC 34.5 % (33.0-36.5); MEAN CORPUSCULAR VOLUME 87.3 FL (78-98); MEAN PLATELET VOLUME 8.8 FL (7.4-10.4); MONOCYTES # (AUTO) 0.6 X10'3 (0-0.9); MONOCYTES % (AUTO) 7.3 % (2-12); NEUTROPHILS # (AUTO) 6.2 X10'3 (1.8-7.7); NEUTROPHILS % (AUTO) 73.1 % (42-75); PLATELET COUNT 192 X10'3 (140-440); RED BLOOD COUNT 3.59 X10'6 (4.70-6.10); RED CELL DISTRIBUTION WIDTH 12.2 % (11.5-14.5); WHITE BLOOD COUNT 8.6 X10'3 (4.5-11.0)
[2018-08-27 02:54] LABS: ALANINE AMINOTRANSFERASE 64 U/L (12-78); ALBUMIN 3.1 G/DL (3.4-5.0); ALBUMIN/GLOBULIN RATIO 0.8 (1.1-1.5); ALKALINE PHOSPHATASE 80 IU/L (46-116); ANION GAP 14 (8-16); ASPARTATE AMINO TRANSFERASE 51 U/L (10-37); BILIRUBIN,TOTAL 1.8 MG/DL (0.1-1.0); BLOOD UREA NITROGEN 45 MG/DL (7-18); BUN/CREATININE RATIO 10.4 (5.4-32.0); CALCIUM 9.6 MG/DL (8.5-10.1); CHLORIDE 108 MMOL/L (99-107); CREATININE 4.32 MG/DL (0.60-1.10); GLUCOSE 118 MG/DL (70-104); PHOSPHORUS 3.5 MG/DL (2.3-4.5); POTASSIUM 3.9 MMOL/L (3.5-5.1); SODIUM 146 MMOL/L (135-145); TOTAL CARBON DIOXIDE 24.5 MMOL/L (24-32); TOTAL PROTEIN 6.9 G/DL (6.4-8.2); VANCOMYCIN,RANDOM 15.1 UG/ML; eGFR 14 ML/MIN
[2018-08-27] MEDS: Dextrose 10%-water IV solution 1,000 ML IV SCH ×2 (05:23→05:47)
[2018-08-27] MEDS: vitamin D (cholecalciferol) 1,000 unit tablet PO SCH (08:00)
[2018-08-27] MEDS: lactobacillus rhamnosus 10,000 MMU CELLS/CAPSULE PO SCH ×2 (08:00→20:33)
[2018-08-27] MEDS: heparin, porcine 5000 units/ml vial SQ SCH ×2 (08:43→20:33)
[2018-08-27] MEDS: metoprolol tartrate 25mg tablet PO SCH ×2 (08:43→20:33)
[2018-08-27] MEDS: tamsulosin 0.4mg capsule PO SCH (08:43)
[2018-08-27] MEDS: famotidine/PF 10 mg/ml inj IV SCH (08:43)
[2018-08-27] MEDS: diltiazem CD 180mg cap (once-daily) PO SCH (08:44)
[2018-08-27] MEDS: aspirin 81mg tablet.DR PO SCH (08:44)
[2018-08-27] MEDS: linagliptin 5mg tablet PO SCH (12:07)
[2018-08-27] MEDS: dextrose 5%-normal saline 1,000 ML IV SCH (12:08)
[2018-08-27] MEDS: amitryptiline 50mg tablet PO SCH (20:33)
[2018-08-27] MEDS: insulin glargine (Lantus) pen - multi-dose SQ SCH (21:00)
[2018-08-27] MEDS: prazosin 1mg capsule PO SCH (22:53)
[2018-08-28] MEDS: diphenhydrAMINE 50 mg/ml inj IV PRN ×3 (00:31→19:49)
[2018-08-28] MEDS: dextrose 5%-normal saline 1,000 ML IV SCH ×2 (02:01→12:17)
[2018-08-28] MEDS: VANCOMYCIN LEVEL IV SCH (03:00)
[2018-08-28 04:19] LABS: ALANINE AMINOTRANSFERASE 98 U/L (12-78); ALBUMIN/GLOBULIN RATIO 0.8 (1.1-1.5); ALKALINE PHOSPHATASE 87 IU/L (46-116); ANION GAP 13 (8-16); ASPARTATE AMINO TRANSFERASE 78 U/L (10-37); BASOPHILS % (AUTO) 0.5 % (0-1); BILIRUBIN,TOTAL 1.5 MG/DL (0.1-1.0); BLOOD UREA NITROGEN 40 MG/DL (7-18); BUN/CREATININE RATIO 9.8 (5.4-32.0); CALCIUM 8.9 MG/DL (8.5-10.1); CHLORIDE 110 MMOL/L (99-107); CREATININE 4.08 MG/DL (0.60-1.10); EOSINOPHILS # (AUTO) 0.3 X10'3 (0-0.9); EOSINOPHILS % (AUTO) 3.9 % (0-6); GLUCOSE 163 MG/DL (70-104); HEMATOCRIT 31.5 % (42.0-52.0); LYMPHOCYTES # (AUTO) 1.4 X10'3 (1.1-4.8); LYMPHOCYTES % (AUTO) 16.8 % (21-51); MAGNESIUM 1.8 MG/DL (1.5-2.4); MEAN CORPUSCULAR HEMOGLOBIN 30.6 PG (27.0-31.0); MEAN CORPUSCULAR HGB CONC 34.8 % (33.0-36.5); MEAN CORPUSCULAR VOLUME 88.1 FL (78-98); MEAN PLATELET VOLUME 8.4 FL (7.4-10.4); MONOCYTES # (AUTO) 0.7 X10'3 (0-0.9); MONOCYTES % (AUTO) 8.6 % (2-12); NEUTROPHILS # (AUTO) 5.8 X10'3 (1.8-7.7); NEUTROPHILS % (AUTO) 70.2 % (42-75); PHOSPHORUS 2.8 MG/DL (2.3-4.5); PLATELET COUNT 194 X10'3 (140-440); POTASSIUM 3.5 MMOL/L (3.5-5.1); RED BLOOD COUNT 3.58 X10'6 (4.70-6.10); RED CELL DISTRIBUTION WIDTH 12.3 % (11.5-14.5); SODIUM 147 MMOL/L (135-145); TOTAL CARBON DIOXIDE 23.6 MMOL/L (24-32); TOTAL PROTEIN 6.8 G/DL (6.4-8.2); VANCOMYCIN,RANDOM 10.2 UG/ML; WHITE BLOOD COUNT 8.1 X10'3 (4.5-11.0); eGFR 15 ML/MIN
[2018-08-28 05:00] VITALS: BP 174/100
[2018-08-28] MEDS: tamsulosin 0.4mg capsule PO SCH (08:27)
[2018-08-28] MEDS: aspirin 81mg tablet.DR PO SCH (08:27)
[2018-08-28] MEDS: lactobacillus rhamnosus 10,000 MMU CELLS/CAPSULE PO SCH ×2 (08:27→20:55)
[2018-08-28] MEDS: metoprolol tartrate 25mg tablet PO SCH ×2 (08:27→20:55)
[2018-08-28] MEDS: linagliptin 5mg tablet PO SCH (08:27)
[2018-08-28] MEDS: diltiazem CD 180mg cap (once-daily) PO SCH (08:27)
[2018-08-28] MEDS: prazosin 1mg capsule PO SCH ×2 (08:27→20:55)
[2018-08-28] MEDS: heparin, porcine 5000 units/ml vial SQ SCH ×2 (08:28→20:56)
[2018-08-28] MEDS: vitamin D (cholecalciferol) 1,000 unit tablet PO SCH (08:28)
[2018-08-28] MEDS: LORazepam 2 mg/ml vial IV PRN ×2 (09:09→15:00)
[2018-08-28] MEDS: insulin Lispro (HumaLOG) vial - multi-dose SQ SCH (09:17)
[2018-08-28 10:00] VITALS: BP 134/80
[2018-08-28] MEDS ORDERED: dextrose 5%-water 1,000 ML IV ONE (16:37)
[2018-08-28 18:00] VITALS: BP 149/97
[2018-08-28] MEDS: insulin glargine (Lantus) pen - multi-dose SQ SCH (21:00)
[2018-08-28] MEDS: amitryptiline 50mg tablet PO SCH (21:29)
[2018-08-28 22:00] VITALS: BP 166/107
[2018-08-28] MEDS ORDERED: haloperidol 1mg tablet PO PRN (22:55)
[2018-08-28 23:51] LABS: ABG BASE EXCESS -5.7 mmol/L (-2.0-3.0); ABG HCO3 17.1 mmol/L (22.0-26.0); ABG OXYGEN SATURATION 96.1 % (95-98); ABG PCO2 (T) 26.2 mmHg (35.0-48.0); ABG PH (T) 7.434 (7.350-7.450); ABG PO2 (T) 82.3 mmHg (83-108); FCOHb 0.1 % (0.5-1.5); PATIENT TEMPERATURE 37.1; RESPIRATORY RATE (OBSERVED) 30 b/min; TOTAL HEMOGLOBIN 11.6 G/dl (14.0-18.0)
[2018-08-29] VITALS (15 sets, daily range): BP systolic 118–186; BP diastolic 79–135
[2018-08-29 00:03] LABS: BASOPHILS % (AUTO) 0.2 % (0-1); EOSINOPHILS % (AUTO) 0.2 % (0-6); HEMATOCRIT 31.4 % (42.0-52.0); LYMPHOCYTES # (AUTO) 1.2 X10'3 (1.1-4.8); LYMPHOCYTES % (AUTO) 11.3 % (21-51); MEAN CORPUSCULAR HEMOGLOBIN 30.3 PG (27.0-31.0); MEAN CORPUSCULAR HGB CONC 34.9 % (33.0-36.5); MEAN CORPUSCULAR VOLUME 86.8 FL (78-98); MEAN PLATELET VOLUME 8.5 FL (7.4-10.4); MONOCYTES # (AUTO) 0.7 X10'3 (0-0.9); MONOCYTES % (AUTO) 6.8 % (2-12); NEUTROPHILS # (AUTO) 8.3 X10'3 (1.8-7.7); NEUTROPHILS % (AUTO) 81.5 % (42-75); PLATELET COUNT 215 X10'3 (140-440); RED BLOOD COUNT 3.62 X10'6 (4.70-6.10); RED CELL DISTRIBUTION WIDTH 12.6 % (11.5-14.5); WHITE BLOOD COUNT 10.2 X10'3 (4.5-11.0)
[2018-08-29 00:05] LABS: ALANINE AMINOTRANSFERASE 111 U/L (12-78); ALBUMIN 3.4 G/DL (3.4-5.0); ALBUMIN/GLOBULIN RATIO 0.9 (1.1-1.5); ALKALINE PHOSPHATASE 89 IU/L (46-116); ANION GAP 17 (8-16); ASPARTATE AMINO TRANSFERASE 93 U/L (10-37); BILIRUBIN,TOTAL 1.7 MG/DL (0.1-1.0); BLOOD UREA NITROGEN 39 MG/DL (7-18); BUN/CREATININE RATIO 8.8 (5.4-32.0); CALCIUM 9.4 MG/DL (8.5-10.1); CHLORIDE 112 MMOL/L (99-107); CREATININE 4.44 MG/DL (0.60-1.10); GLUCOSE 162 MG/DL (70-104); POTASSIUM 3.6 MMOL/L (3.5-5.1); SODIUM 150 MMOL/L (135-145); TOTAL PROTEIN 7.1 G/DL (6.4-8.2); eGFR 13 ML/MIN
[2018-08-29] MEDS ORDERED: diltiazem-NS 100mg/100ml 100 ML IV SCH (00:30)
[2018-08-29] MEDS ORDERED: diltiazem 5mg/ml 5ml inj. IV ONE (00:30)
[2018-08-29 00:54] LABS: TROPONIN I 0.11 NG/ML (0.0-0.05)
[2018-08-29] MEDS ORDERED: metoprolol tartrate 1mg/ml inj IV ONE (01:05)
[2018-08-29] MEDS: LORazepam 2 mg/ml vial IV PRN ×2 (01:13→11:11)
[2018-08-29] MEDS: vitamin D (cholecalciferol) 1,000 unit tablet PO SCH (08:00)
[2018-08-29] MEDS: lactobacillus rhamnosus 10,000 MMU CELLS/CAPSULE PO SCH ×2 (08:00→22:24)
[2018-08-29] MEDS: diltiazem CD 180mg cap (once-daily) PO SCH (08:00)
[2018-08-29] MEDS: linagliptin 5mg tablet PO SCH (08:00)
[2018-08-29] MEDS: tamsulosin 0.4mg capsule PO SCH (08:00)
[2018-08-29] MEDS: metoprolol tartrate 25mg tablet PO SCH (08:00)
[2018-08-29] MEDS: prazosin 1mg capsule PO SCH ×2 (08:00→22:24)
[2018-08-29] MEDS: heparin, porcine 5000 units/ml vial SQ SCH (08:00)
[2018-08-29] MEDS: aspirin 81mg tablet.DR PO SCH (08:00)
[2018-08-29] MEDS ORDERED: dextrose 5%-normal saline 1,000 ML IV SCH (10:25)
[2018-08-29 10:40] LABS: BASOPHILS % (AUTO) 0 % (0-1); EOSINOPHILS % (AUTO) 0.1 % (0-6); HEMATOCRIT 34.2 % (42.0-52.0); HEMOGLOBIN 11.8 g/dl (14.0-17.9); LYMPHOCYTES # (AUTO) 1.4 X10'3 (1.1-4.8); LYMPHOCYTES % (AUTO) 13.1 % (21-51); MEAN CORPUSCULAR HEMOGLOBIN 30.1 PG (27.0-31.0); MEAN CORPUSCULAR HGB CONC 34.6 % (33.0-36.5); MEAN CORPUSCULAR VOLUME 87.1 FL (78-98); MEAN PLATELET VOLUME 8.9 FL (7.4-10.4); NEUTROPHILS # (AUTO) 8.2 X10'3 (1.8-7.7); NEUTROPHILS % (AUTO) 77.8 % (42-75); PLATELET COUNT 214 X10'3 (140-440); RED BLOOD COUNT 3.92 X10'6 (4.70-6.10); RED CELL DISTRIBUTION WIDTH 12.8 % (11.5-14.5); WHITE BLOOD COUNT 10.6 X10'3 (4.5-11.0)
[2018-08-29 10:49] LABS: ALANINE AMINOTRANSFERASE 131 U/L (12-78); ALBUMIN 3.6 G/DL (3.4-5.0); ALBUMIN/GLOBULIN RATIO 0.9 (1.1-1.5); ALKALINE PHOSPHATASE 94 IU/L (46-116); ANION GAP 20 (8-16); ASPARTATE AMINO TRANSFERASE 118 U/L (10-37); BILIRUBIN,TOTAL 1.8 MG/DL (0.1-1.0); BLOOD UREA NITROGEN 40 MG/DL (7-18); BUN/CREATININE RATIO 8.9 (5.4-32.0); CALCIUM 9.7 MG/DL (8.5-10.1); CHLORIDE 111 MMOL/L (99-107); GLUCOSE 146 MG/DL (70-104); MAGNESIUM 1.5 MG/DL (1.5-2.4); PHOSPHORUS 3.3 MG/DL (2.3-4.5); POTASSIUM 3.6 MMOL/L (3.5-5.1); SODIUM 151 MMOL/L (135-145); TOTAL CARBON DIOXIDE 19.8 MMOL/L (24-32); TOTAL PROTEIN 7.4 G/DL (6.4-8.2); TROPONIN I 0.31 NG/ML (0.0-0.05); eGFR 13 ML/MIN
[2018-08-29] MEDS ORDERED: metoprolol tartrate 1mg/ml inj IV SCH (10:55)
[2018-08-29] MEDS ORDERED: heparin 10,000 units/1 ML INJ IV PRN (12:35)
[2018-08-29] MEDS ORDERED: heparin 10,000 units/1 ML INJ IV ONE (12:35)
[2018-08-29] MEDS ORDERED: dextrose 5%-water 1,000 ML IV SCH (12:40)
[2018-08-29] MEDS ORDERED: vancomycin/NS 1 GM ADD-VANTAGE 250 ML IV ONE (13:05)
[2018-08-29] MEDS: dexmedetomidin/NS 400mcg/100ml 100 ML IV SCH ×2 (13:17→21:42)
[2018-08-29] MEDS: dextrose 5%-water 1,000 ML IV SCH ×5 (13:18→23:01)
[2018-08-29] MEDS: esmolol/sodium cl bag 250 ML IV SCH ×2 (13:25→18:48)
[2018-08-29 14:01] LABS: INR 1.1 INR; PARTIAL THROMBOPLASTIN TIME 28 SECONDS (22-32); PROTHROMBIN TIME 11.2 SECONDS (9.0-12.0)
[2018-08-29 14:23] LABS: GLUCOSE,CSF 101 MG/DL (40-75); TOTAL PROTEIN,CSF 81 MG/DL (30-60)
[2018-08-29 15:11] LABS: ALBUMIN 3.4 G/DL (3.4-5.0); ANION GAP 17 (8-16); BLOOD UREA NITROGEN 42 MG/DL (7-18); BUN/CREATININE RATIO 9.2 (5.4-32.0); CALCIUM 8.9 MG/DL (8.5-10.1); CHLORIDE 107 MMOL/L (99-107); CREATININE 4.56 MG/DL (0.60-1.10); GLUCOSE 304 MG/DL (70-104); POTASSIUM 3.9 MMOL/L (3.5-5.1); SODIUM 144 MMOL/L (135-145); TOTAL CARBON DIOXIDE 19.7 MMOL/L (24-32); eGFR 13 ML/MIN
[2018-08-29 15:18] LABS: APPEARANCE,CSF CLEAR; CSF SUPERNATANT COLOR COLORLESS
[2018-08-29 15:19] LABS: CSF RBC 668 /CU MM (0); CSF VOLUME 5 ML; CSF WBC CT 3 /CU MM (0-5); TUBE# COUNTED 1
[2018-08-29 15:23] LABS: APPEARANCE,CSF CLEAR; CSF RBC 17 /CU MM (0); CSF SUPERNATANT COLOR COLORLESS; CSF VOLUME 5 ML; CSF WBC CT 4 /CU MM (0-5); TUBE# COUNTED 3
[2018-08-29] MEDS ORDERED: morphine 2 MG/ML inj. syringe IV ONE (16:00)
[2018-08-29] MEDS ORDERED: ziprasidone IM 20mg inj **IM only IM ONE (16:15)
[2018-08-29] MEDS: meropenem inj 1 GM in normal saline 100ml IV soln 100 ML IV SCH (17:53)
[2018-08-29 17:58] LABS: CREATINE KINASE 3093 U/L (39-308)
[2018-08-29] MEDS ORDERED: ziprasidone IM 20mg inj **IM only IM PRN (18:30)
[2018-08-29] MEDS: bisacodyl 10mg suppository rectal RC PRN (20:31)
[2018-08-29] MEDS: insulin glargine (Lantus) pen - multi-dose SQ SCH (21:00)
[2018-08-29 21:07] LABS: ANION GAP 15 (8-16); BLOOD UREA NITROGEN 41 MG/DL (7-18); BUN/CREATININE RATIO 9.3 (5.4-32.0); CALCIUM 8.6 MG/DL (8.5-10.1); CHLORIDE 110 MMOL/L (99-107); CREATININE 4.43 MG/DL (0.60-1.10); GLUCOSE 202 MG/DL (70-104); POTASSIUM 3.7 MMOL/L (3.5-5.1); SODIUM 145 MMOL/L (135-145); eGFR 13 ML/MIN
[2018-08-29] MEDS: amitryptiline 50mg tablet PO SCH (22:24)
[2018-08-29] MEDS: insulin Lispro (HumaLOG) vial - multi-dose SQ SCH (23:22)
[2018-08-30] VITALS (24 sets, daily range): BP systolic 84–151; BP diastolic 58–98
[2018-08-30] MEDS: VANCOMYCIN LEVEL IV SCH (03:00)
[2018-08-30] MEDS: dextrose 5%-water 1,000 ML IV SCH ×3 (03:17→07:38)
[2018-08-30 03:26] LABS: BASOPHILS # (AUTO) 0.1 X10'3 (0-0.2); EOSINOPHILS # (AUTO) 0.1 X10'3 (0-0.9); EOSINOPHILS % (AUTO) 1.4 % (0-6); HEMATOCRIT 29.1 % (42.0-52.0); HEMOGLOBIN 10.1 g/dl (14.0-17.9); LYMPHOCYTES # (AUTO) 2.6 X10'3 (1.1-4.8); LYMPHOCYTES % (AUTO) 25.3 % (21-51); MEAN CORPUSCULAR HEMOGLOBIN 30.3 PG (27.0-31.0); MEAN CORPUSCULAR HGB CONC 34.6 % (33.0-36.5); MEAN CORPUSCULAR VOLUME 87.6 FL (78-98); MEAN PLATELET VOLUME 8.4 FL (7.4-10.4); MONOCYTES # (AUTO) 1.1 X10'3 (0-0.9); MONOCYTES % (AUTO) 10.7 % (2-12); NEUTROPHILS # (AUTO) 6.2 X10'3 (1.8-7.7); NEUTROPHILS % (AUTO) 61.6 % (42-75); PLATELET COUNT 184 X10'3 (140-440); RED BLOOD COUNT 3.32 X10'6 (4.70-6.10); RED CELL DISTRIBUTION WIDTH 12.6 % (11.5-14.5); WHITE BLOOD COUNT 10.1 X10'3 (4.5-11.0)
[2018-08-30 03:38] LABS: ALANINE AMINOTRANSFERASE 118 U/L (12-78); ALBUMIN 2.9 G/DL (3.4-5.0); ALBUMIN/GLOBULIN RATIO 0.9 (1.1-1.5); ALKALINE PHOSPHATASE 76 IU/L (46-116); ANION GAP 13 (8-16); ASPARTATE AMINO TRANSFERASE 78 U/L (10-37); BILIRUBIN,TOTAL 1.3 MG/DL (0.1-1.0); BLOOD UREA NITROGEN 41 MG/DL (7-18); CALCIUM 8.7 MG/DL (8.5-10.1); CHLORIDE 108 MMOL/L (99-107); CREATININE 4.55 MG/DL (0.60-1.10); GLUCOSE 165 MG/DL (70-104); POTASSIUM 3.3 MMOL/L (3.5-5.1); SODIUM 142 MMOL/L (135-145); TOTAL CARBON DIOXIDE 21.5 MMOL/L (24-32); TOTAL PROTEIN 6.1 G/DL (6.4-8.2); eGFR 13 ML/MIN
[2018-08-30 03:42] LABS: MAGNESIUM 1.7 MG/DL (1.5-2.4); PHOSPHORUS 3.3 MG/DL (2.3-4.5); PREALBUMIN 18.6 MG/DL (19-36); TROPONIN I 0.23 NG/ML (0.0-0.05); VANCOMYCIN,RANDOM 16.1 UG/ML
[2018-08-30] MEDS ORDERED: vancomycin/NS 1 GM ADD-VANTAGE 250 ML IV PRN (08:00)
[2018-08-30] MEDS: prazosin 1mg capsule PO SCH ×2 (08:36→20:00)
[2018-08-30] MEDS: lactobacillus rhamnosus 10,000 MMU CELLS/CAPSULE PO SCH ×2 (08:36→20:36)
[2018-08-30] MEDS: linagliptin 5mg tablet PO SCH (08:36)
[2018-08-30] MEDS: vitamin D (cholecalciferol) 1,000 unit tablet PO SCH (08:36)
[2018-08-30] MEDS: diltiazem CD 180mg cap (once-daily) PO SCH (08:36)
[2018-08-30] MEDS: tamsulosin 0.4mg capsule PO SCH (08:36)
[2018-08-30] MEDS: aspirin 81mg tablet.DR PO SCH (08:36)
[2018-08-30] MEDS: meropenem inj 1 GM in normal saline 100ml IV soln 100 ML IV SCH (08:37)
[2018-08-30] MEDS ORDERED: insulin regular, human vial - multi-dose SQ SCH (13:22)
[2018-08-30] MEDS: diltiazem 30mg tablet PO SCH ×2 (14:00→20:36)
[2018-08-30] MEDS ORDERED: normal saline 1000ml 1,000 ML IV ONE (14:55)
[2018-08-30] MEDS: buPROPion 75mg tablet PO SCH ×3 (15:36→20:36)
[2018-08-30] MEDS ORDERED: meropenem inj 500 MG in normal saline 100ml IV soln 100 ML IV SCH (20:00)
[2018-08-30] MEDS: amitryptiline 50mg tablet PO SCH (20:36)
[2018-08-30] MEDS: insulin Lispro (HumaLOG) vial - multi-dose SQ SCH (20:46)
[2018-08-30] MEDS: insulin glargine (Lantus) pen - multi-dose SQ SCH (20:47)
[2018-08-31] VITALS (19 sets, daily range): BP systolic 85–129; BP diastolic 58–81
[2018-08-31] MEDS: VANCOMYCIN LEVEL IV SCH (00:29)
[2018-08-31] MEDS: diltiazem 30mg tablet PO SCH ×2 (01:07→07:48)
[2018-08-31 05:22] LABS: BASOPHILS # (AUTO) 0.1 X10'3 (0-0.2); BASOPHILS % (AUTO) 0.7 % (0-1); EOSINOPHILS # (AUTO) 0.3 X10'3 (0-0.9); EOSINOPHILS % (AUTO) 3.6 % (0-6); HEMATOCRIT 30.4 % (42.0-52.0); HEMOGLOBIN 10.3 g/dl (14.0-17.9); LYMPHOCYTES # (AUTO) 2.2 X10'3 (1.1-4.8); LYMPHOCYTES % (AUTO) 26.9 % (21-51); MEAN CORPUSCULAR HEMOGLOBIN 29.6 PG (27.0-31.0); MEAN CORPUSCULAR HGB CONC 33.7 % (33.0-36.5); MEAN CORPUSCULAR VOLUME 87.9 FL (78-98); MEAN PLATELET VOLUME 9.4 FL (7.4-10.4); MONOCYTES # (AUTO) 0.8 X10'3 (0-0.9); MONOCYTES % (AUTO) 10.2 % (2-12); NEUTROPHILS # (AUTO) 4.7 X10'3 (1.8-7.7); NEUTROPHILS % (AUTO) 58.6 % (42-75); PLATELET COUNT 176 X10'3 (140-440); RED BLOOD COUNT 3.46 X10'6 (4.70-6.10); RED CELL DISTRIBUTION WIDTH 12.8 % (11.5-14.5); WHITE BLOOD COUNT 8.1 X10'3 (4.5-11.0)
[2018-08-31 05:46] LABS: ALANINE AMINOTRANSFERASE 97 U/L (12-78); ALBUMIN 2.7 G/DL (3.4-5.0); ALBUMIN/GLOBULIN RATIO 0.9 (1.1-1.5); ALKALINE PHOSPHATASE 72 IU/L (46-116); ANION GAP 14 (8-16); ASPARTATE AMINO TRANSFERASE 42 U/L (10-37); BLOOD UREA NITROGEN 45 MG/DL (7-18); BUN/CREATININE RATIO 9.5 (5.4-32.0); CALCIUM 8.4 MG/DL (8.5-10.1); CHLORIDE 108 MMOL/L (99-107); CREATININE 4.74 MG/DL (0.60-1.10); GLUCOSE 130 MG/DL (70-104); MAGNESIUM 1.7 MG/DL (1.5-2.4); PHOSPHORUS 4.3 MG/DL (2.3-4.5); POTASSIUM 3.2 MMOL/L (3.5-5.1); SODIUM 143 MMOL/L (135-145); TOTAL CARBON DIOXIDE 20.9 MMOL/L (24-32); TOTAL PROTEIN 5.7 G/DL (6.4-8.2); VANCOMYCIN,RANDOM 11.9 UG/ML; eGFR 12 ML/MIN
[2018-08-31] MEDS: aspirin 81mg tablet.DR PO SCH (07:48)
[2018-08-31] MEDS: buPROPion 75mg tablet PO SCH (07:48)
[2018-08-31] MEDS: vitamin D (cholecalciferol) 1,000 unit tablet PO SCH (07:48)
[2018-08-31] MEDS: lactobacillus rhamnosus 10,000 MMU CELLS/CAPSULE PO SCH ×2 (07:48→22:15)
[2018-08-31] MEDS: linagliptin 5mg tablet PO SCH (07:48)
[2018-08-31] MEDS: tamsulosin 0.4mg capsule PO SCH (07:48)
[2018-08-31] MEDS: prazosin 1mg capsule PO SCH ×2 (08:00→22:15)
[2018-08-31] MEDS: bisacodyl 10mg suppository rectal RC PRN (09:09)
[2018-08-31] MEDS: insulin Lispro (HumaLOG) vial - multi-dose SQ SCH ×2 (09:24→13:59)
[2018-08-31] MEDS ORDERED: insulin Lispro (HumaLOG) vial - multi-dose SQ SCH (11:00)
[2018-08-31] MEDS ORDERED: potassium Cl oral solution 20 MEQ/15 ML PO ONE (11:00)
[2018-08-31 12:11] LABS: MAGNESIUM 1.8 MG/DL (1.5-2.4); PHOSPHORUS 3.1 MG/DL (2.3-4.5)
[2018-08-31] MEDS: insulin glargine (Lantus) pen - multi-dose SQ SCH (21:00)
[2018-08-31] MEDS: amitryptiline 50mg tablet PO SCH (22:15)
[2018-08-31] MEDS: heparin, porcine 5000 units/ml vial SQ SCH (22:15)
[2018-08-31] MEDS: buPROPion SR 150mg tablet PO SCH (22:15)
[2018-09-01 03:00] VITALS: BP 113/78
[2018-09-01 05:25] LABS: BASOPHILS % (AUTO) 0.4 % (0-1); EOSINOPHILS # (AUTO) 0.3 X10'3 (0-0.9); EOSINOPHILS % (AUTO) 4.4 % (0-6); HEMOGLOBIN 10.3 g/dl (14.0-17.9); LYMPHOCYTES # (AUTO) 2.5 X10'3 (1.1-4.8); LYMPHOCYTES % (AUTO) 32.3 % (21-51); MEAN CORPUSCULAR HEMOGLOBIN 30.9 PG (27.0-31.0); MEAN CORPUSCULAR HGB CONC 35.4 % (33.0-36.5); MEAN CORPUSCULAR VOLUME 87.2 FL (78-98); MEAN PLATELET VOLUME 9.6 FL (7.4-10.4); MONOCYTES # (AUTO) 0.8 X10'3 (0-0.9); MONOCYTES % (AUTO) 10.5 % (2-12); NEUTROPHILS # (AUTO) 4.1 X10'3 (1.8-7.7); NEUTROPHILS % (AUTO) 52.4 % (42-75); PLATELET COUNT 169 X10'3 (140-440); RED BLOOD COUNT 3.33 X10'6 (4.70-6.10); RED CELL DISTRIBUTION WIDTH 13.2 % (11.5-14.5); WHITE BLOOD COUNT 7.7 X10'3 (4.5-11.0)
[2018-09-01 05:35] LABS: ALANINE AMINOTRANSFERASE 84 U/L (12-78); ALBUMIN 2.8 G/DL (3.4-5.0); ALBUMIN/GLOBULIN RATIO 0.9 (1.1-1.5); ALKALINE PHOSPHATASE 86 IU/L (46-116); ANION GAP 12 (8-16); ASPARTATE AMINO TRANSFERASE 27 U/L (10-37); BILIRUBIN,TOTAL 0.9 MG/DL (0.1-1.0); BLOOD UREA NITROGEN 43 MG/DL (7-18); BUN/CREATININE RATIO 9.2 (5.4-32.0); CALCIUM 8.4 MG/DL (8.5-10.1); CHLORIDE 110 MMOL/L (99-107); CREATININE 4.68 MG/DL (0.60-1.10); GLUCOSE 149 MG/DL (70-104); MAGNESIUM 1.8 MG/DL (1.5-2.4); PHOSPHORUS 3.2 MG/DL (2.3-4.5); POTASSIUM 3.3 MMOL/L (3.5-5.1); SODIUM 144 MMOL/L (135-145); TOTAL CARBON DIOXIDE 21.9 MMOL/L (24-32); TOTAL PROTEIN 5.8 G/DL (6.4-8.2); eGFR 13 ML/MIN
[2018-09-01 07:03] VITALS: BP 112/82
[2018-09-01] MEDS: lactobacillus rhamnosus 10,000 MMU CELLS/CAPSULE PO SCH ×2 (09:02→19:17)
[2018-09-01] MEDS: diltiazem CD 120mg capsule (once-daily) PO SCH (09:02)
[2018-09-01] MEDS: vitamin D (cholecalciferol) 1,000 unit tablet PO SCH (09:03)
[2018-09-01] MEDS: buPROPion SR 150mg tablet PO SCH ×2 (09:03→19:18)
[2018-09-01] MEDS: tamsulosin 0.4mg capsule PO SCH (09:04)
[2018-09-01] MEDS: aspirin 81mg tablet.DR PO SCH (09:05)
[2018-09-01] MEDS: linagliptin 5mg tablet PO SCH (09:06)
[2018-09-01] MEDS: prazosin 1mg capsule PO SCH ×2 (09:06→19:18)
[2018-09-01] MEDS: heparin, porcine 5000 units/ml vial SQ SCH ×2 (09:13→19:17)
[2018-09-01 11:34] VITALS: BP 117/87
[2018-09-01] MEDS ORDERED: potassium Cl 40MEQ/NS 500ml 500 ML IV PRN ×2 (11:40)
[2018-09-01] MEDS ORDERED: magnesium Cl slow-release 64mg tablet PO PRN (11:40)
[2018-09-01] MEDS ORDERED: potassium Cl 20 mEq SR tablet PO PRN (11:40)
[2018-09-01 12:38] LABS: MAGNESIUM 1.7 MG/DL (1.5-2.4); PHOSPHORUS 2.6 MG/DL (2.3-4.5)
[2018-09-01] MEDS: potassium Cl 20 mEq SR tablet PO PRN ×3 (13:44→23:33)
[2018-09-01] MEDS: insulin Lispro (HumaLOG) vial - multi-dose SQ SCH ×2 (14:06→19:25)
[2018-09-01 15:00] VITALS: BP 110/87
[2018-09-01 19:00] VITALS: BP 109/71
[2018-09-01 19:08] LABS: HSV 1 PCR Negative (Negative); HSV 2 PCR Negative (Negative)
[2018-09-01] MEDS: amitryptiline 50mg tablet PO SCH (22:12)
[2018-09-01] MEDS: insulin glargine (Lantus) pen - multi-dose SQ SCH (22:13)
[2018-09-01 23:00] VITALS: BP 138/78
[2018-09-02 03:00] VITALS: BP 121/73
[2018-09-02 05:41] LABS: BASOPHILS % (AUTO) 0.8 % (0-1); EOSINOPHILS # (AUTO) 0.2 X10'3 (0-0.9); HEMATOCRIT 30.4 % (42.0-52.0); HEMOGLOBIN 10.5 g/dl (14.0-17.9); LYMPHOCYTES % (AUTO) 33.3 % (21-51); MEAN CORPUSCULAR HEMOGLOBIN 30.7 PG (27.0-31.0); MEAN CORPUSCULAR HGB CONC 34.6 % (33.0-36.5); MEAN CORPUSCULAR VOLUME 88.6 FL (78-98); MEAN PLATELET VOLUME 10.3 FL (7.4-10.4); MONOCYTES # (AUTO) 0.6 X10'3 (0-0.9); MONOCYTES % (AUTO) 10.6 % (2-12); NEUTROPHILS # (AUTO) 3.3 X10'3 (1.8-7.7); NEUTROPHILS % (AUTO) 51.3 % (42-75); PLATELET COUNT 188 X10'3 (140-440); RED BLOOD COUNT 3.43 X10'6 (4.70-6.10); RED CELL DISTRIBUTION WIDTH 13.2 % (11.5-14.5); WHITE BLOOD COUNT 6.1 X10'3 (4.5-11.0)
[2018-09-02 06:05] LABS: ALANINE AMINOTRANSFERASE 74 U/L (12-78); ALKALINE PHOSPHATASE 91 IU/L (46-116); ANION GAP 11 (8-16); ASPARTATE AMINO TRANSFERASE 22 U/L (10-37); BILIRUBIN,TOTAL 0.8 MG/DL (0.1-1.0); BLOOD UREA NITROGEN 37 MG/DL (7-18); BUN/CREATININE RATIO 8.7 (5.4-32.0); CALCIUM 8.7 MG/DL (8.5-10.1); CHLORIDE 110 MMOL/L (99-107); CREATININE 4.26 MG/DL (0.60-1.10); GLUCOSE 134 MG/DL (70-104); MAGNESIUM 1.8 MG/DL (1.5-2.4); PHOSPHORUS 2.9 MG/DL (2.3-4.5); POTASSIUM 4.2 MMOL/L (3.5-5.1); PREALBUMIN 22.5 MG/DL (19-36); SODIUM 144 MMOL/L (135-145); TOTAL CARBON DIOXIDE 22.7 MMOL/L (24-32); TOTAL PROTEIN 6.1 G/DL (6.4-8.2); eGFR 14 ML/MIN
[2018-09-02] MEDS: vitamin D (cholecalciferol) 1,000 unit tablet PO SCH (08:20)
[2018-09-02] MEDS: lactobacillus rhamnosus 10,000 MMU CELLS/CAPSULE PO SCH (08:20)
[2018-09-02] MEDS: buPROPion SR 150mg tablet PO SCH (08:20)
[2018-09-02] MEDS: aspirin 81mg tablet.DR PO SCH (08:21)
[2018-09-02] MEDS: tamsulosin 0.4mg capsule PO SCH (08:21)
[2018-09-02] MEDS: linagliptin 5mg tablet PO SCH (08:21)
[2018-09-02] MEDS: prazosin 1mg capsule PO SCH (08:21)
[2018-09-02] MEDS: diltiazem CD 120mg capsule (once-daily) PO SCH (08:22)
[2018-09-02] MEDS: insulin Lispro (HumaLOG) vial - multi-dose SQ SCH ×2 (08:50→14:10)
[2018-09-02 13:04] LABS: MAGNESIUM 1.7 MG/DL (1.5-2.4); PHOSPHORUS 2.3 MG/DL (2.3-4.5)
[2018-09-02 13:21] LABS: CRYPTOCOCCUS ANTIGEN, CSF Negative (Negative)
[2018-09-02] MEDS ORDERED: PRAZ1CAP5 PO (14:36)
[2018-09-02] MEDS ORDERED: CARCD120C PO (14:36)
[2018-09-02 15:15] VITALS: BP 114/70
== END 2018-09-02 17:45 | disposition home or self-care (01) | DRG 871 ==
LOC: ER 14:27 → PCU 3S 16:20 → ICU 2S 08-21 12:02 → ORTHO 4S 08-27 17:35 → PCU 3S 08-29 01:05 → ICU 2S 08-29 12:46 → PCU 3S 08-31 15:48
PROVIDERS: ADMIT Internal Medicine; ATTEND Internal Medicine Critical Care Medicine
PROC: 5A1945Z Respiratory Ventilation, 24-96 Consecutive Hours (ICD-10-PCS; principal; 2018-08-21)
PROC: 0BH17EZ Insertion of Endotracheal Airway into Trachea, Via Natural or Artificial Opening (ICD-10-PCS; 2018-08-21)
PROC: 02HV33Z Insertion of Infusion Device into Superior Vena Cava, Percutaneous Approach (ICD-10-PCS; 2018-08-21)
PROC: B548ZZA Ultrasonography of Superior Vena Cava, Guidance (ICD-10-PCS; 2018-08-21)
PROC: 4A10X4Z Monitoring of Central Nervous Electrical Activity, External Approach (ICD-10-PCS; 2018-08-21)
PROC: 009U3ZZ Drainage of Spinal Canal, Percutaneous Approach (ICD-10-PCS; 2018-08-29)
DX: A41.9 Sepsis, unspecified organism (principal); G93.41 Metabolic encephalopathy; J96.00 Acute respiratory failure, unspecified whether with hypoxia or hypercapnia; I21.4 Non-ST elevation (NSTEMI) myocardial infarction; N17.9 Acute kidney failure, unspecified; E87.0 Hyperosmolality and hypernatremia; G25.9 Extrapyramidal and movement disorder, unspecified; I12.0 Hypertensive chronic kidney disease with stage 5 chronic kidney disease or end stage renal disease; N18.5 Chronic kidney disease, stage 5; F05 Delirium due to known physiological condition; E87.2 Acidosis; E86.0 Dehydration; E87.8 Other disorders of electrolyte and fluid balance, not elsewhere classified; K21.9 Gastro-esophageal reflux disease without esophagitis; E11.22 Type 2 diabetes mellitus with diabetic chronic kidney disease; T42.8X5A Adverse effect of antiparkinsonism drugs and other central muscle-tone depressants, initial encounter; F17.210 Nicotine dependence, cigarettes, uncomplicated; F20.9 Schizophrenia, unspecified; F32.9 Major depressive disorder, single episode, unspecified; G24.01 Drug induced subacute dyskinesia; I48.0 Paroxysmal atrial fibrillation; Z90.49 Acquired absence of other specified parts of digestive tract; Z88.0 Allergy status to penicillin; Z79.899 Other long term (current) drug therapy; Z79.84 Long term (current) use of oral hypoglycemic drugs; Z87.11 Personal history of peptic ulcer disease; Y92.89 Other specified places as the place of occurrence of the external cause; Z78.1 Physical restraint status
CPT/HCPCS: 36415; 36600; 70450; 70551; 71045; 74018; 80048; 80053; 80202; 80305; 80320; 81001; 82140; 82550; 82570; 82803; 82945; 82948; 83036; 83605; 83735; 83930; 83935; 84100; 84132; 84134; 84145; 84146; 84157; 84300; 84439; 84443; 84484; 85018; 85025; 85610; 85730; 87015; 87040; 87070; 87210; 87529; 87899; 89051; 93005; 93308; 94002; 94003; 94640; 94760; 95816; 96379; 97110; 97116; 97162; 97530; 99285; A4315; A6213; A6258; A6449; C1751; J1200; J1644; J1815; J2060; J2185; J2250; J2270; J2543; J3370; J3411; J3475; J3480; J3486; J3490; J7030; J7042; J7060; J7070; Q0175

== ENCOUNTER 2019-09-23 13:26 | Outpatient (CLI) | payer MEDICARE, MEDICAID ==
[~2019-09-23 13:26] MED LIST changes: +AMIT100T2 PO; +ASPI81TA52 PO; +CARCD120C PO; +CHOL500049 PO; -CLOM25CA10 PO; -CYCL-1 PO; -CYCL-35 PO; -DIPH50CA4 PO; -FAMO-128 PO; +GLIP10TA11 PO; +HYDR-3965 PO; -LACT10SO PO; +LINA5TAB4 PO; -LISI-222 PO; -METF500T PO; +PERP8TAB6 PO; -PERPHENAZINE PO; -PIOG15TA8 PO; +PRAZ1CAP5 PO; -etomidate 2mg/ml inj. ONE; -rocuronium 10mg/ml inj IV ONE
== END 2019-09-23 23:59 | disposition home or self-care (01) ==
LOC: RAD 13:26
DX: R94.31 Abnormal electrocardiogram [ECG] [EKG] (principal); E11.9 Type 2 diabetes mellitus without complications; Z79.899 Other long term (current) drug therapy
CPT/HCPCS: 93005

== ENCOUNTER → 2020-08-27 | Outpatient (CLI) | payer MEDICARE, MEDICAID | END | disposition home or self-care (01) | LOC: CARD DIAG 13:53 | DX: Z79.899 Other long term (current) drug therapy (principal) | CPT/HCPCS: 93005 ==

== ENCOUNTER 2021-08-19 12:45 | Day surgery (SDC) | payer MEDICARE, MEDICAID ==
[~2021-08-19] VITALS: Ht 172.7 cm; Wt 89.1 kg
[2021-08-19 13:13] VITALS: BP 120/87
[2021-08-19] MEDS ORDERED: heparin 1,000unit/ml 10ml vial 10 ML ONE (15:58)
[2021-08-19] MEDS ORDERED: LIDOcaine 1%/PF 5ML 10 MG/ML VIAL ONE (15:59)
[2021-08-19] MEDS ORDERED: midazolam 1 mg/ML 2ml injection ONE (15:59)
[2021-08-19] MEDS ORDERED: fentaNYL/PF 50MCG/1 ML 2ML syringe ONE (15:59)
[2021-08-19] MEDS ORDERED: ondansetron/PF 4mg/2ml inj ONE (16:56)
[2021-08-19 17:08] VITALS: BP 132/90
[2021-08-19 17:15] VITALS: BP 130/83
[2021-08-19 17:45] VITALS: BP 132/86
== END 2021-08-19 17:48 | disposition home or self-care (01) ==
LOC: SSTAY O 12:45
PROVIDERS: ATTEND Radiology Vascular & Interventional Radiology
DX: T82.858A Stenosis of other vascular prosthetic devices, implants and grafts, initial encounter (principal); M79.622 Pain in left upper arm
CPT/HCPCS: 36558; 76937; 77001; 82948; 87635; C9803; J1644; J2250; J2405; J3010; 99152; 99153; A9270; C1750; C1769; C1894

== ENCOUNTER 2021-08-30 11:32 | Day surgery (SDC) | payer MEDICARE, MEDICAID ==
[~2021-08-30] VITALS: Ht 172.7 cm; Wt 87.8 kg
[2021-08-30] VITALS (7 sets, daily range): BP systolic 113–147; BP diastolic 67–91
[2021-08-30] MEDS ORDERED: normal saline 1000ml 1,000 ML IV SCH (11:55)
[2021-08-30] MEDS ORDERED: OSC500T PO (12:05)
[2021-08-30 12:41] LABS: BASOPHILS # (AUTO) 0.1 X10'3 (0-0.2); BASOPHILS % (AUTO) 0.9 % (0-1); EOSINOPHILS # (AUTO) 0.5 X10'3 (0-0.9); EOSINOPHILS % (AUTO) 4.3 % (0-6); HEMATOCRIT 39.5 % (42.0-52.0); HEMOGLOBIN 12.9 g/dl (14.0-17.9); LYMPHOCYTES # (AUTO) 2.7 X10'3 (1.1-4.8); LYMPHOCYTES % (AUTO) 22.2 % (21-51); MEAN CORPUSCULAR HGB CONC 32.7 g/dL (33.0-36.5); MEAN CORPUSCULAR VOLUME 94.7 FL (78-98); MEAN PLATELET VOLUME 7.9 FL (7.4-10.4); MONOCYTES # (AUTO) 0.7 X10'3 (0-0.9); MONOCYTES % (AUTO) 5.7 % (2-12); NEUTROPHILS # (AUTO) 8.1 X10'3 (1.8-7.7); NEUTROPHILS % (AUTO) 66.9 % (42-75); PLATELET COUNT 273 X10'3 (140-440); RED BLOOD COUNT 4.17 X10'6 (4.70-6.10); RED CELL DISTRIBUTION WIDTH 14.4 % (11.5-14.5); WHITE BLOOD COUNT 12.1 X10'3 (4.5-11.0)
[2021-08-30 14:31] LABS: ALBUMIN 3.3 G/DL (3.4-5.0); ANION GAP 11 (8-16); BLOOD UREA NITROGEN 31 MG/DL (7-18); BUN/CREATININE RATIO 5.4 (5.4-32.0); CALCIUM 8.7 MG/DL (8.5-10.1); CHLORIDE 103 MMOL/L (99-107); CREATININE 5.73 MG/DL (0.60-1.10); GLUCOSE 213 MG/DL (70-104); POTASSIUM 4.1 MMOL/L (3.5-5.1); SODIUM 144 MMOL/L (135-145); TOTAL CARBON DIOXIDE 30.2 MMOL/L (24-32); eGFR 10 ML/MIN
[2021-08-30] MEDS ORDERED: LIDOcaine 1%/PF 5ML 10 MG/ML VIAL ONE (15:55)
[2021-08-30] MEDS ORDERED: fentaNYL/PF 50MCG/1 ML 2ML syringe ONE (15:55)
[2021-08-30] MEDS ORDERED: midazolam 1 mg/ML 2ml injection ONE (15:55)
[2021-08-30] MEDS ORDERED: heparin 1,000 UNITS/NS 500ml 500 ML ONE (15:55)
[2021-08-30] MEDS ORDERED: iohexol 300mg/ml 100ml inj. ONE (15:55)
[2021-08-30] MEDS ORDERED: ondansetron/PF 4mg/2ml inj ONE (16:45)
== END 2021-08-30 18:30 | disposition home or self-care (01) ==
LOC: SSTAY O 11:32
PROVIDERS: ATTEND Radiology Vascular & Interventional Radiology
DX: T82.858A Stenosis of other vascular prosthetic devices, implants and grafts, initial encounter (principal); E11.22 Type 2 diabetes mellitus with diabetic chronic kidney disease; N18.6 End stage renal disease; Z79.01 Long term (current) use of anticoagulants; Z79.899 Other long term (current) drug therapy; Z79.84 Long term (current) use of oral hypoglycemic drugs; Z88.8 Allergy status to other drugs, medicaments and biological substances; Z88.0 Allergy status to penicillin; F17.210 Nicotine dependence, cigarettes, uncomplicated; Z72.89 Other problems related to lifestyle; Y83.2 Surgical operation with anastomosis, bypass or graft as the cause of abnormal reaction of the patient, or of later complication, without mention of misadventure at the time of the procedure; Y92.89 Other specified places as the place of occurrence of the external cause
CPT/HCPCS: 36415; 36901; 76937; 80048; 85025; 85610; C1769; C1894; J1644; J2250; J2405; J3010; J7030; Q9967; 99152; 99153